=== PATIENT | female | born 1960 | race Caucasian/White ===

== ENCOUNTER 2018-08-03 07:46 | Inpatient (IN) | payer OTHER ==
[~2018-08-03] VITALS: Ht 154.4 cm; Wt 90.5 kg
--- OUTSIDE RECORDS SUMMARY | 2018-08-03 07:48 | XMS REPORT ---
Author Author Admin, [place] Organization [facility] Address [address] [place] [address] Phone Allergies, Adverse Reactions, Alerts Allergy Name Reaction Description Start Date Severity Status Provider KEFLEX Moderate Active Shavon Torres.Raysa Conditions or Problems Problem Name Problem Code Onset Date Status Entry Date Provider Comment Standard Description Annotate Hx of foot transmetatarsal amputation, right V49.73 Active Sarah Perez MD (res) Status post amputation of foot Benign positional vertigo 386.11 Active Shavon Ramirez D.O. Benign paroxysmal positional vertigo GERD 530.81 Active Sarah Perez MD (res) Esophageal reflux Need for home health care V60.4 Active Sarah Perez MD (res) No other household member able to render care Right carotid artery occlusion 433.10 Active Sarah Perez MD (res) Occlusion and stenosis of carotid artery, without mention of cerebral infarction s/p R CEA March 2018 ESRD 585.6 Active Sarah Perez MD (res) End stage renal disease Dialysis T,Th,S Renal: Dr. 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 Other, mixed, or unspecified drug abuse, in remission Cervical neuropathy 353.2 Active Shavon Baileydacompa D.O. Cervical root lesions, not elsewhere classified Amputated big toe V49.71 Active Shavon Baileydacompa D.O. Status post amputation of great toe Anemia 285.9 Active Shavon Ramirez D.O. Anemia, unspecified COPD 496 Active Shavon Baileydacompa D.O. Chronic airway obstruction, not elsewhere classified DEPRESSIVE DISORDER, MAJOR, RECURRENT EPISODE, SEVERE Active Brinda PAYNEW Major depressive disorder, recurrent episode, severe degree, without mention of psychotic behavior Diabetes mellitus, type II 250.00 Active Shavon Ramirez D.O. Diabetes mellitus without mention of complication, type II or unspecified type, not stated as uncontrolled Hypertension benign essential 401.1 Active Louis Vaughan MD Benign essential hypertension Amputation of great right toe ICD-V45.89 Inactive Sarah Perez MD (res) Osteomyelitis, acute, ankle/foot 730.07 Inactive Shavon Ramirez D.O. Acute osteomyelitis involving ankle and foot resolved S/P amputation of right toes Cellulitis, foot, right ICD-682.7 Inactive Sarah Perez MD (res) Gangrene 785.4 Inactive Radha Tello DO Gangrene right foot- first two digits Gangrene ICD-785.4 Inactive Radha Tello DO Wound eschar of foot ICD-959.7 Inactive Sarah Perez MD (res) CKD stage 4 (gfr 15-29) 585.4 Inactive Merna Steve [employer] Chronic kidney disease, Stage IV (severe) Dysuria ICD-788.1 Inactive Sarah Perez MD (res) Constipation ICD-564.00 Inactive Kalyan Smith MD R3 CVA 434.91 Inactive Shavon Ramirez D.O. Cerebral artery occlusion, unspecified, with cerebral infarction recent, pt is non compliant with meds Anxiety/depression ICD-300.4 Inactive Kalyan Smith MD R3 HTN, uncontrolled 401.9 Inactive Shavon Torres.O. Unspecified essential hypertension Nausea ICD-787.02 Inactive Kalyan Smith MD R3 Amputation of great right toe V45.89 Resolved Sarah Perez MD (res) Other postsurgical status Cellulitis, foot, right 682.7 Resolved Sarah Perez MD (res) Cellulitis and abscess of foot, except toes Wound eschar of foot 959.7 Resolved Sarah Perez MD (res) Other and unspecified injury to knee, leg, ankle, and foot Dysuria 788.1 Resolved Sarah Perez MD (res) Dysuria Constipation 564.00 Resolved Louis Vaughan MD Constipation, unspecified Anxiety/depression 300.4 Resolved Louis Vaughan MD Dysthymic disorder Nausea 787.02 Resolved Louis Vaughan MD Nausea alone Medication List Medication Instructions Start Date Stop Date Generic Name NDC Status Provider Patient Instruction FERROUS SULFATE 325 (65 FE) MG ORAL TABLET Take one tab By Mouth Three Times a Day FERROUS SULFATE 95254723915 Active Sarah Perez MD (res) Active PROMETHAZINE HCL 12.5 MG ORAL TABLET 1 by mouth every 6 hours as needed for nausea or emesis PROMETHAZINE HCL 87426185006 Active Sarah Perez MD (res) Active ELIQUIS 5 MG ORAL TABLET TK 1 T PO BID APIXABAN 87237458008 Active Sarah Perez MD (res) Active SEVELAMER CARBONATE 800 MG ORAL TABLET TK 2 TS PO TID WITH MEALS AND 1 T PO BID WITH SNACKS SEVELAMER CARBONATE 34145107802 Active Sarah Perez MD (res) Active LISINOPRIL 10 MG ORAL TABLET 1 by mouth every day LISINOPRIL 15948746028 Active Sarah Perez MD (res) Active PROTONIX 40 MG ORAL TABLET DELAYED RELEASE 1 tab By Mouth daily PANTOPRAZOLE SODIUM 84677073117 Active Sarah Perez MD (res) Active CLONIDINE HCL 0.1 MG ORAL TABLET Take one tab By Mouth Three Times a Day CLONIDINE HCL 09293090481 Active Sarah Perez MD (res) Active HYDRALAZINE HCL 50 MG ORAL TABLET Take one tab By Mouth Every 8 hours HYDRALAZINE HCL 83250787734 Active Sarah Perez MD (res) Active LORAZEPAM 0.5 MG ORAL TABLET 1 by mouth once daily as needed LORAZEPAM 19852747471 Active Sarah Perez MD (res) Active SENNA-DOCUSATE SODIUM 8.6-50 MG ORAL TABLET one tablet twice daily as needed for constipation SENNOSIDES-DOCUSATE SODIUM 35863337827 Active Madalyn Harry MD Active ASPIRIN 81 MG ORAL TABLET DELAYED RELEASE 1 by mouth every day ASPIRIN 81200846811 Active Merna DILL Active ATORVASTATIN CALCIUM 80 MG ORAL TABLET Take 1 pill By Mouth daily ATORVASTATIN CALCIUM 67730318647 Active Merna DILL Active GABAPENTIN 300 MG ORAL CAPSULE Take 2 capsules daily and 1 capsule at bedtime. GABAPENTIN 63130876983 Active Merna DILL Active SERTRALINE HCL 100 MG ORAL TABLET Take 1 1/2 tablets by mouth daily. SERTRALINE HCL 89779234919 Active Cinthya Lopezvino [facility] Active TRAMADOL HCL 50 MG ORAL TABLET 1 tablets by mouth 4 times a day as needed for pain, use sparingly TRAMADOL HCL 50 MG ORAL TABLET 427192 TRAMADOL HCL Inactive ONDANSETRON HCL 4 MG ORAL TABLET take one by mouth every 8 hours by mouth as needed ONDANSETRON HCL 4 MG ORAL TABLET 424669 ONDANSETRON HCL Inactive CLINDAMYCIN HCL 300 MG ORAL CAPSULE TK ONE C PO QID FOR 7 DAYS CLINDAMYCIN HCL 300 MG ORAL CAPSULE 567222 CLINDAMYCIN HCL Inactive AMLODIPINE BESYLATE 10 MG ORAL TABLET 1 tab by mouth daily AMLODIPINE BESYLATE 10 MG ORAL TABLET 026404 AMLODIPINE BESYLATE Inactive PLAVIX 75 MG ORAL TABLET 1 by mouth every day PLAVIX 75 MG ORAL TABLET 337636 CLOPIDOGREL BISULFATE Inactive ATIVAN 0.5 MG ORAL TABLET Take 1 tablet by mouth daily as needed for anxiety. ATIVAN 0.5 MG ORAL TABLET LORAZEPAM Inactive ATIVAN 1 MG ORAL TABLET 1 by mouth 2 times a day as needed for anxiety ATIVAN 1 MG ORAL TABLET 461518 LORAZEPAM Inactive CARVEDILOL 3.125 MG ORAL TABLET 1 pill twice a day CARVEDILOL 3.125 MG ORAL TABLET 242669 CARVEDILOL Inactive CITALOPRAM HYDROBROMIDE 20 MG ORAL TABLET 1 tab by mouth daily CITALOPRAM HYDROBROMIDE 20 MG ORAL TABLET 956705 CITALOPRAM HYDROBROMIDE Inactive METFORMIN HCL 1000 MG ORAL TABLET 1 by mouth twice a day METFORMIN HCL 1000 MG ORAL TABLET 578609 METFORMIN HCL Inactive PROMETHAZINE HCL 25 MG ORAL TABLET 1 by mouth every 6 hours as needed for nausea or emesis PROMETHAZINE HCL 25 MG ORAL TABLET 944658 PROMETHAZINE HCL Inactive TRAMADOL HCL 50 MG ORAL TABLET 1 tablets by mouth 4 times a day as needed for pain, use sparingly TRAMADOL HCL 95849744812 No Longer Active Sarah Perez MD (res) Active ONDANSETRON HCL 4 MG ORAL TABLET take one by mouth every 8 hours by mouth as needed ONDANSETRON HCL 88028174857 No Longer Active Sarah Perez MD (res) Active CLINDAMYCIN HCL 300 MG ORAL CAPSULE TK ONE C PO QID FOR 7 DAYS CLINDAMYCIN HCL 41170831716 No Longer Active Sarah Perez MD (res) Active AMLODIPINE BESYLATE 10 MG ORAL TABLET 1 tab by mouth daily AMLODIPINE BESYLATE 18220861488 No Longer Active Sarah Perez MD (res) Active PLAVIX 75 MG ORAL TABLET 1 by mouth every day CLOPIDOGREL BISULFATE 21458028261 No Longer Active Sarah Perez MD (res) Active ATIVAN 0.5 MG ORAL TABLET Take 1 tablet by mouth daily as needed for anxiety. LORAZEPAM 61425329505 No Longer Active Sarah Perez MD (res) Active ATIVAN 1 MG ORAL TABLET 1 by mouth 2 times a day as needed for anxiety LORAZEPAM 41903174011 No Longer Active Shavon Ramirez D.O. Active CARVEDILOL 3.125 MG ORAL TABLET 1 pill twice a day CARVEDILOL 96153409637 No Longer Active Sarah Perez MD (res) Active CITALOPRAM HYDROBROMIDE 20 MG ORAL TABLET 1 tab by mouth daily CITALOPRAM HYDROBROMIDE 42000867035 No Longer Active Shavon Torres.Raysa Active METFORMIN HCL 1000 MG ORAL TABLET 1 by mouth twice a day METFORMIN HCL 44510723830 No Longer Active Shavon Torres.Raysa Active PROMETHAZINE HCL 25 MG ORAL TABLET 1 by mouth every 6 hours as needed for nausea or emesis PROMETHAZINE HCL 89168173948 No Longer Active Shavon Ramirez D.O. Active Vital Signs Date Name Value Unit Range Description blood pressure, diastolic 54 mm[Hg] BP wood blood pressure, systolic 126 mm[Hg] BP sys height E&M 67 [in_us] Bdy height pulse rate E&M 69 /min Heart rate respiratory rate E&M 21 /min Resp rate temperature E&M 98.4 [degF] Body temperature blood pressure, diastolic 79 mm[Hg] BP wood blood pressure, systolic 129 mm[Hg] BP sys height E&M 67 [in_us] Bdy height pulse rate E&M 64 /min Heart rate respiratory rate E&M 20 /min Resp rate temperature E&M 98.3 [degF] Body temperature blood pressure, diastolic 76 mm[Hg] BP wood blood pressure, systolic 132 mm[Hg] BP sys height E&M 67 [in_us] Bdy height pulse rate E&M 74 /min Heart rate respiratory rate E&M 20 /min Resp rate temperature E&M 98.8 [degF] Body temperature blood pressure, diastolic, second observation 57 mm[Hg] BP wood blood pressure, diastolic 57 mm[Hg] BP wood blood pressure, systolic, second observation 140 mm[Hg] BP sys blood pressure, systolic 140 mm[Hg] BP sys height E&M 67 [in_us] Bdy height pulse rate E&M 63 /min Heart rate respiratory rate E&M 20 /min Resp rate temperature E&M 98.1 [degF] Body temperature blood pressure, diastolic 79 mm[Hg] BP wood blood pressure, systolic 148 mm[Hg] BP sys height E&M 67 [in_us] Bdy height pulse rate E&M 69 /min Heart rate respiratory rate E&M 16 /min Resp rate temperature E&M 99.3 [degF] Body temperature Diagnostic Results Date Name Value Unit Range Description Lab Report: TSH+Free T4, Comp. Metabolic Panel (14), Lipid Panel, Hemogl ... - Chemistry thyroid stimulating hormone, serum 4.200 u[iU]/mL 0.450-4.500 very low density lipoproteins 27 mg/dL 5-40 Lab Report: Comp. Metabolic Panel (14) - Chemistry chloride, serum 106 mmol/L 97-106 urea nitrogen, blood 39 mg/dL 6-24 Lab Report: CBC With Differential/Platelet - Hematology mean corpuscular hemoglobin concentration, RBC 32.2 G/DL % 31.5-35.7 erythrocyte (RBC) count 4.17 X10E6/UL 10*6/mm3 3.77-5.28 Lab Report: CBC With Differential/Platelet - Chemistry Absolute Neutrophils 7.9 X10E3/UL 10*3/uL 1.4-7.0 Lab Report: TSH+Free T4, Comp. Metabolic Panel (14), Lipid Panel, Hemogl ... - Chemistry LDL cholesterol, serum 179 mg/dL 0-99 Lab Report: Comp. 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 Metabolic Panel (14), Lipid Panel, Hemogl ... - Chemistry HDL cholesterol, serum 62 mg/dL >39 Lab Report: CBC With Differential/Platelet - Hematology monocytes as percent of blood leukocytes 3 % Lab Report: Comp. Metabolic Panel (14) - Chemistry albumin/globulin ratio, serum 1.2 1.1-2.5 creatinine, serum 2.00 mg/dL 0.57-1.00 Lab Report: TSH+Free T4, Comp. Metabolic Panel (14), Lipid Panel, Hemogl ... - Chemistry cholesterol, serum 268 mg/dL 100-199 Lab Report: Comp. Metabolic Panel (14) - Chemistry bilirubin, serum, total <0.2 mg/dL mg/dL 0.0-1.2 Lab Report: CBC With Differential/Platelet - Hematology Eosinophil Absolute Count 0.3 X10E3/UL 10*3/uL 0.0-0.4 Lab Report: Comp. Metabolic Panel (14) - Chemistry aspartate aminotransferase (SGOT), serum 13 U/L 0-40 Lab Report: CBC With Differential/Platelet - Hematology red blood cell distribution width 15.3 % 12.3-15.4 leukocyte count, blood 10.7 X10E3/UL 10*3/mm3 3.4-10.8 Lab Report: Comp. Metabolic Panel (14) - Chemistry potassium, serum 5.2 mmol/L 3.5-5.2 albumin, serum 3.6 g/dL 3.5-5.5 Lab Report: CBC With Differential/Platelet - Chemistry immature granulocytes, percentage of total cells, blood 0 % Lab Report: CBC With Differential/Platelet - Hematology lymphocyte count, blood, automated 2.2 X10E3/UL 10*3/mm3 0.7-3.1 hematocrit, blood 36.9 % 34.0-46.6 Lab Report: Comp. Metabolic Panel (14) - Chemistry sodium, serum 139 mmol/L 136-144 Lab Report: CBC With Differential/Platelet - Hematology neutrophils as percent of blood leukocytes 73 % Internal Correspondence: Pre-Visit Planning - Other List of providers caring for patient Leona Lua and Dixie Desai Lab Report: CBC With Differential/Platelet - Hematology basophils as percent of blood leukocytes 0 % Lab Report: Comp. Metabolic Panel (14) - Chemistry carbon dioxide, venous blood 15 mmol/L 18-29 Lab Report: TSH+Free T4, Comp. Metabolic Panel (14), Lipid Panel, Hemogl ... - Chemistry triglyceride, serum, fasting 135 mg/dL 0-149 Lab Report: Comp. Metabolic Panel (14) - Chemistry calcium, serum 8.2 mg/dL 8.7-10.2 alanine aminotransferase (SGPT), serum 16 U/L 0-32 Lab Report: CBC With Differential/Platelet - Hematology mean corpuscular hemoglobin, RBC 28.5 pg 26.6-33.0 Lab Report: Comp. Metabolic Panel (14) - Chemistry protein, total, serum 6.6 g/dL 6.0-8.5 alkaline phosphatase, serum 98 U/L 39-117 Lab Report: CBC With Differential/Platelet - Hematology hemoglobin, blood 11.9 g/dL 11.1-15.9 lymphocytes as percent of blood leukocytes 21 % Office Visit: Adult Followup diabetes/homecare eval rm 5 Dr Perez - Chemistry hemoglobin A1C, blood, as % of total hemoglobin 5.2 % Lab Report: Comp. Metabolic Panel (14) - Genetics/fertility eGFR if 32 mL/min/1.73m2 >59 Lab Report: CBC With Differential/Platelet - Hematology basophil count, absolute 0.0 x10E3/uL 0.0-0.2 Lab Report: TSH+Free T4, Comp. Metabolic Panel (14), Lipid Panel, Hemogl ... - Chemistry thyroxine, serum, free 0.89 ng/dL 0.82-1.77 Lab Report: Comp. Metabolic Panel (14) - Chemistry globulin, serum 3.0 1.5-4.5 Estimated Glomerular Filtration Rate (calc) 28 mL/min/1.73m2 >59 Lab Report: CBC With Differential/Platelet - Hematology eosinophils as percent of blood leukocytes 3 % Office Visit: Adult Followup diabetes/homecare eval rm 5 Dr Perez - Chemistry blood glucose, random 120 mg/dL Lab Report: CBC With Differential/Platelet - Hematology monocyte count, blood, automated 0.3 X10E3/UL 10*3/uL 0.1-0.9 platelet count 393 X10E3/UL 10*3/mm3 150-379 Encounters Date Encounter Provider Code Facility 12:08:00 HEPATOLOGY PHYSICIAN Est Patient Detailed - 05115 Sarah Perez MD (res) CPT-17324 [facility] 16:42:05 HEPATOLOGY PHYSICIAN Est Patient Exp Problem - 30039 Shavon Ramirez D.O. CPT-18666 [facility] 14:50:12 HEPATOLOGY PHYSICIAN Est Patient Detailed - 90412 Shavon Ramirez D.O. CPT-34277 [facility] 11:47:56 CDT Est Patient Exp Problem - 75287 Sarah Perez MD (res) CPT-16724 [facility] 13:45:55 CDT Est Patient Detailed - 04665 Merna Steve [facility] CPT-27157 [facility] 09:24:22 HEPATOLOGY PHYSICIAN Est Patient Detailed - 28063 Freddie Arellano MD CPT-33073 [facility] 08:54:58 HEPATOLOGY PHYSICIAN Est Patient Exp Problem - 05397 Louis Vaughan MD CPT-67159 [facility] 13:27:16 CDT Est Patient Exp Problem - 95509 Madalyn Harry MD CPT-14122 [facility] 17:52:32 CDT Est Patient Exp Problem - 41462 Shavon Ramirez D.O. CPT-19093 [facility] 11:20:23 HEPATOLOGY PHYSICIAN Est Patient Exp Problem - 57354 Papa Santizo DO R3 CPT-49313 [facility] 16:06:11 CDT Est Patient Exp Problem - 57166 Shavon Ramirez D.O. CPT-22073 [facility] Procedures Code Procedure Name Date Entry Date Standard Description CPT-40510 HEMOGLOBIN A1C - In House 08:54:59 HEPATOLOGY PHYSICIAN CPT-56619 Psychotherapy 30 (16-37*) min - 58098 (with patient and/or family member) 21:27:17 CDT CPT-59209 Diagnostic evaluation with medical - 26086 08:43:54 CDT CPT-FC001 Financial Counseling/Eligibility Assistance 13:27:17 CDT CPT-77389 Diagnostic evaluation (no medical) - 83936 10:38:25 CDT CPT-81121 Diagnostic evaluation (no medical) - 99499 20:08:39 CDT CPT-FC001 Financial Counseling/Eligibility Assistance 16:06:11 CDT
[2018-08-03] MEDS ORDERED: ONDANSETRON HCL INJ 2MG/ML 2ML 2 MG/ML VIAL ONE (07:59)
[2018-08-03] MEDS ORDERED: ONDANSETRON HCL INJ 2MG/ML 2ML 2 MG/ML VIAL IV STA (08:02)
[2018-08-03] MEDS ORDERED: PROMETHAZINE HCL (IM) 25 MG/ML VIAL ONE (08:13)
[2018-08-03] MEDS ORDERED: SODIUM CHLORIDE 0.9% 100 ML ONE (08:14)
[2018-08-03 08:26] LABS: BASOPHILS % 0.4 % (0.0-1.0); EOSINOPHILS # (AUTO) 0.4 (0.0-0.4); HEMATOCRIT 30.3 % (34.2-44.1); HEMOGLOBIN 9.2 g/dL (12.0-16.0); LYMPHOCYTES # (AUTO) 1.2 (1.0-3.2); LYMPHOCYTES % 11.1 % (18.0-39.1); MEAN CORPUSCULAR HEMOGLOBIN 27.3 pg (28-32); MEAN CORPUSCULAR HGB CONC 30.4 g/dL (31-35); MEAN CORPUSCULAR VOLUME 89.9 fL (81-99); MONOCYTES # (AUTO) 0.5 (0.2-0.8); MONOCYTES % 4.2 % (4.4-11.3); NEUTROPHILS # (AUTO) 8.4 (2.1-6.9); NEUTROPHILS % 78.7 % (38.7-80.0); PLATELET COUNT 374 x10e3/uL (140-360); RED BLOOD COUNT 3.37 x10e6/uL (3.6-5.1); RED CELL DISTRIBUTION WIDTH 17.1 % (11.7-14.4)
[2018-08-03 08:37] LABS: CLARITY,URINE CLOUDY (CLEAR); COLOR,URINE YELLOW (YELLOW)
[2018-08-03 08:38] LABS: BILIRUBIN,URINE NEGATIVE (NEGATIVE); KETONES,URINE NEGATIVE (NEGATIVE); LEUKOCYTE ESTERASE ,URINE 1+ (NEGATIVE); NITRITE,URINE NEGATIVE (NEGATIVE); PROTEIN,URINE DIPSTICK 2+ (NEGATIVE); URINE UROBILINOGEN 0.2 mg/dL (0.2 - 1)
[2018-08-03 08:41] LABS: INR 0.98; PROTHROMBIN TIME 13.5 seconds (11.9-14.5)
[2018-08-03 08:42] LABS: PARTIAL THROMBOPLASTIN TIME 42.8 seconds (23.8-35.5)
[2018-08-03 08:50] LABS: ALANINE AMINOTRANSFERASE 13 IU/L (0-55); ALBUMIN 2.5 g/dL (3.5-5.0); ALBUMIN/GLOBULIN RATIO 0.6 (0.8-2.0); ALKALINE PHOSPHATASE 108 IU/L (40-150); AMYLASE 29 U/L (25-125); ANION GAP 20.2 mmol/L (8-16); BLOOD UREA NITROGEN 35 mg/dL (7-26); BUN/CREATININE RATIO 6 (6-25); CALCIUM 8.4 mg/dL (8.4-10.2); CARBON DIOXIDE 26 mmol/L (22-29); CHLORIDE 97 mmol/L (98-107); CREATINE KINASE 25 IU/L (29-168); CREATININE, SERUM 5.63 mg/dL (0.57-1.11); EST GLOMERULAR FILTRATION RATE 8 ML/MIN (60-); GLUCOSE 112 mg/dL (74-118); LIPASE 11 U/L (8-78); MAGNESIUM 2.2 MG/DL (1.3-2.1); POTASSIUM 4.2 mmol/L (3.5-5.1); SODIUM 139 mmol/L (136-145)
[2018-08-03 08:53] LABS: RBC,URINE >50 /HPF (0-5); WBC,URINE (MAN) >50 /HPF (0-5); YEAST,URINE MODERATE
[2018-08-03 08:56] LABS: EPITHELIAL CELLS,URINE FEW /LPF
--- NOTE | 2018-08-03 08:59 | NUR ---
RADIOLOGY TO ROOM FOR TESTING.
[2018-08-03] MEDS ORDERED: PROMETHAZINE 12.5MG/ NACL 0.9% 12.5 MG/50 ML BAG IV ONE (09:00)
--- NOTE | 2018-08-03 09:02 | NUR ---
ON ARRIVAL PT ACTIVELY VOMITING. MD AT BEDSIDE. MEDS ORDERED AND GIVEN AND PT NO LONGER VOMITING AND RESTING COMFORTABLY WITH STABLE VITAL SIGNS. HOB REMAINS 45 DEGREES TO DECREASE ASPIRATION RISK, ALSO HAS EMASIS BAG IN HAND WITH CALL ROSALES TIED TO RAIL AND INSTRUCTED ON USE WITH RETURN DEMONSTRATION. DOOR OPEN AND ON FULL MONITORING AND O2.
[2018-08-03] MEDS ORDERED: VANCOMYCIN 1GM/NS 250 ML 250 ML IV STA (09:05)
[2018-08-03] MEDS ORDERED: MEROPENEM 500MG 500 MG in SODIUM CHLORIDE 0.9% 50ML 50 ML IV STA (09:05)
[2018-08-03] MEDS ORDERED: DIATRIZOATE MEGL/DIATRIZOA SOD 30 ML BTL PO ONE (09:10)
--- NOTE | 2018-08-03 09:14 | NUR ---
MD NOTIFIED OF LOW BP AND ORDERED NS 500 CC' ; HUNG AND RUNNING WIDE OPEN; CONTINUE TO MONITOR.
[2018-08-03] MEDS ORDERED: SODIUM CHLORIDE 0.9% 500ML 500 ML IV ONE (09:15)
--- NOTE | 2018-08-03 09:18 | Diagnostic Imaging Report ---
EXAM: CHEST SINGLE (PORTABLE) DATE: 08/03/2018 8:02 AM INDICATION: Renal disease COMPARISON: None FINDINGS: Lines and tubes: There is a tunneled right IJ dialysis catheter with the tip extending to the cavoatrial junction. Heart size normal. No focal pulmonary opacity, pleural effusion or pneumothorax. No pulmonary vascular congestion. Minimal scar or atelectasis in the right midlung. Upper abdomen unremarkable. No acute bony abnormality. IMPRESSION: No evidence for acute disease in the chest. Signed by: Dr. Efra Stuart M.D. on 08/03/2018 9:15 AM
--- NOTE | 2018-08-03 09:22 | Diagnostic Imaging Report ---
EXAM: FOOT RIGHT COMPLETE DATE: 08/03/2018 8:02 AM INDICATION: Recent amputation COMPARISON: None FINDINGS: 3 views of the right foot show transmetatarsal amputations of the first through fifth digits. Bones at the foot and ankle are diffusely demineralized. There is patchy lucency at the base of the first metatarsal medially and at the base of the fifth metatarsal which may be related to the generalized osteopenia or osteomyelitis. Bandaging is seen over the distal aspect of the foot. IMPRESSION: 1. Transmetatarsal amputations of the first or fifth digits. 2. Generalized osteopenia of the foot and ankle. 3. Ill-defined demineralization at the base of the first and fifth metatarsals is nonspecific and may be related to the generalized osteopenia, although involvement by osteomyelitis is also a consideration. Signed by: Dr. Efra Stuart M.D. on 08/03/2018 9:19 AM
--- NOTE | 2018-08-03 10:07 | NUR ---
RESTING COMFORTABLY NO DISTRESS, VSS.
--- NOTE | 2018-08-03 11:28 | Diagnostic Imaging Report ---
EXAMINATION: CT of the abdomen and pelvis with contrast. TECHNIQUE: Helical CT images of the abdomen and pelvis were performed from the lung bases to the lesser trochanters after the intravenous administration of 150 cc of Isovue 300 and the oral administration of none. Coronal and sagittal reformatted images were obtained.Dose modulation, iterative reconstruction, and/or weight based adjustment of the mA/kV was utilized to reduce the radiation dose to as low as reasonably achievable. COMPARISON: None. CLINICAL HISTORY:Nausea and vomiting DISCUSSION: ABDOMEN/PELVIS: LOWER THORAX:Unremarkable. HEPATOBILIARY: No focal hepatic lesions. No intra-or extrahepatic biliary ductal dilation. Cholecystectomy with postsurgical change. Surgical overlying the right liver. At the operative site a 6.8 cm air and fluid collection. SPLEEN: No splenomegaly. PANCREAS: No focal masses or ductal dilatation. ADRENALS: No adrenal nodules. KIDNEYS/URETERS: Renal cortical thinning. No solid mass. PELVIC ORGANS/BLADDER: Bladder is decompressed with Garcia catheter. PERITONEUM/RETROPERITONEUM: No free air or fluid. LYMPH NODES: No intra-abdominal, retroperitoneal, pelvic or inguinal lymphadenopathy. VESSELS: Vascular calcifications. GI TRACT: Contrast within the colon. BONES AND SOFT TISSUE: No bony destructive lesions. No soft tissue abnormalities. IMPRESSION: Postoperative changes from cholecystectomy. A 7 cm air and fluid collection at the operative site. Signed by: Dr. Keenan Martinez M.D. on 08/03/2018 11:25 AM
--- NOTE | 2018-08-03 11:43 | NUR ---
[facility] pt s/p choleystectomy x 5 days and having abd pain and vomiting on arrival. transfer denied. they are holding 21 pts in their own ER @ this time.
[2018-08-03] MEDS ORDERED: DEXTROSE 50% SYRINGE 50 ML IV PRN (12:15)
--- NOTE | 2018-08-03 12:15 | NUR ---
medical release printed off [employer] and on chart. pt resting. will have pt sign once awake.
--- OUTSIDE RECORDS SUMMARY | 2018-08-03 12:37 | XMS REPORT ---
Author Author [facility] Address Unknown Phone Unavailable Care Team Providers Care Dog Food Dough Mixer Name Role Phone Ofelia CALHOUN Unavailable Unavailable Problems This patient has no known problems. Allergies, Adverse Reactions, Alerts This patient has no known allergies or adverse reactions. Medications This patient has no known medications. Results Test Description Test Time Test Comments Text Results Atomic Results Result Comments CT ABDOMEN/PELVIS W 2018-08-03 11:18:00 [place] [address] Patient Name: SAMANTHA BIRD MR #: [id number] : 1960 Age/Sex: 57/F Req #: [id number] Adm Physician: Ordered by: RAMIREZ CALHOUN MD Report #: [id number] Location: ER Room/Bed: Procedure: [id number] CT/CT ABDOMEN/PELVIS W Exam Date: 08/03/18 Exam Time: 1030 REPORT STATUS: Signed EXAMINATION: CT of the abdomen and pelvis with contras t. TECHNIQUE: Helical CT images of the abdomen and pelvis were performed from the lung bases to the lesser trochanters after the intravenous administration of 150 cc of Isovue 300 and the oral administration of none. Coronal and sagittal reformatted images were obtained.Dose modulation, iterative reconstruction, and/or weight based adjustment of the mA/kV was utilized to reduce the radiation dose to as low as reasonably achievable. COMPARISON: None. CLINICAL HISTORY:Nausea and vomiting DISCUSSION: ABDOMEN/PELVIS: LOWER THORAX:Unremarkable. HEPA TOBILIARY: No focal hepatic lesions. No intra-or extrahepatic biliary ductal dilation. Cholecystectomy with postsurgical change. Surgical overlying the right liver. At the operative site a 6.8 cm air and fluid collection. SPLEEN: No splenomegaly. PANCREAS: No focal masses or ductal dilatation. ADRENALS: No adrenal nodules. KIDNEYS/URETERS: Renal cortical thinning. No solid mass. PELVIC ORGANS/BLADDER: Bladder is decompressed with Garcia catheter. PERITONEUM/RETROPERITONEUM: No free air or fluid. LYMPH NODES: No intra-abdominal, retroperitoneal, pelvic or inguinal lymphadenopathy. VESSELS: Vascular calcifications. GI TRACT: Contrast within the colon. BONES AND SOFT TISSUE: No bony destructive lesions. No soft tissue abnormalities. IMPRESSION: Postoperative changes from cholecystectomy. A 7 cm air and fluid collection at the operative site. Signed by: Dr. Sky Reaves M.D. on 08/03/2018 11:25 AM Dictated By: SKY REAVES MD 1125 Transcribed By: MIMI on 08/03/18 1125 COPY TO: RAMIREZ CALHOUN MD FOOT RIGHT COMPLETE 2018-08-03 09:15:00 [place] [address] Patient Name: SAMANTHA BIRD MR #: [id number] : 1960 Age/Sex: 57/F Req #: [id number] Adm Physician: Ordered by: RAMIREZ CALHOUN MD Report #: [id number] Location: ER Room/Bed: Procedure: [id number] DX/FOOT RIGHT COMPLETE Exam Date: 08/03/18 Exam Time: 839 REPORT STATUS: Signed EXAM: FOOT RIGHT COMPLETE DATE: 08/03/2018 8:02 AM INDICATION: Recent amputation COMPARISON: None FINDINGS: 3 views of the right foot show transmetatarsal amputations of the first through fifth digits. Bones at the foot and ankle are diffusely demineralized. There is patchy lucency at the base of the first metatarsal medially and at the base of the fifth metatarsal which may be related to the generalized osteopenia or o steomyelitis. Bandaging is seen over the distal aspect of the foot. IMPRESSION: 1. Transmetatarsal amputations of the first or fifth digits. 2. Generalized osteopenia of the foot and ankle. 3. Ill-defined demineralization at the base of the first and fifth metatarsals is nonspecific and may be related to the generalized osteopenia, although involvement by osteomyelitis is also a consideration. Signed by: Dr. Maria Esther Lang M.D. on 08/03/2018 9:19 AM Dictated By: MARIA ESTHER LANG MD 8 Transcribed By: MIMI on 08/03/18918 COPY TO: RAMIREZ CALHOUN MD CHEST SINGLE (PORTABLE) 2018-08-03 09:13:00 [place] [address] Patient Name: SAMANTHA BIRD MR #: [id number] : 1960 Age/Sex: 57/F Req #: [id number] Adm Physician: Ordered by: RAMIREZ CALHOUN MD Report #: [id number] Location: ER Room/Bed: Procedure: [id number] DX/CHEST SINGLE (PORTABLE) Exam Date: 08/03/18 Exam Time: 0840 REPORT STATUS: Signed EXAM: CHEST SINGLE (PORTABLE) DATE: 08/03/2018 8:02 AM INDICATION: Renal disease COMPARISON: None FINDINGS: Lines and tubes: There is a tunneled right IJ dialysis catheter with the tip extending to the cavoatrial junction. Heart size normal. No focal pulmonary opacity, pleural effusion or pneumothorax. No pulmonary vascular congestion. Minimal scar or atelectasis in the right midlung. Upper abdomen unremarkable. No acute bony abnormality. IMPRESSION: No evidence for acute disease in the chest. Signed by: Dr. Maria Esther Lang M.D. on 08/03/2018 9:15 AM Dictated By: MARIA ESTHER LANG MD 4 Transcribed By: MIMI on 08/03/18914 COPY TO: RAMIREZ CALHOUN MD
--- OUTSIDE RECORDS SUMMARY | 2018-08-03 12:38 | XMS REPORT ---
Author Author Admin, [place] Organization [facility] Address [address] [address] Phone Allergies, Adverse Reactions, Alerts Allergy Name [...] Dr. 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 Other, mixed, or unspecified drug abuse, in remission Cervical neuropathy 353.2 Active Shavon Ramirez D.O. Cervical root lesions, not elsewhere classified Amputated big toe V49.71 Active Shavon Baileydacompa D.O. Status post amputation of great toe Anemia 285.9 Active Shavon Ramirez D.O. Anemia, unspecified COPD 496 Active Shavon Ramirez D.O. 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 Chronic kidney disease, Stage IV (severe) Dysuria [...] Mouth Three Times a Day FERROUS SULFATE 07950239405 Active Sarah Perez MD (res) Active PROMETHAZINE HCL 12.5 MG ORAL TABLET 1 by mouth every 6 hours as needed for nausea or emesis PROMETHAZINE HCL 46089732766 Active Sarah Perez MD (res) Active ELIQUIS 5 MG ORAL TABLET TK 1 T PO BID APIXABAN 10404006965 Active Sarah Perez MD (res) Active SEVELAMER CARBONATE 800 MG ORAL TABLET TK 2 TS PO TID WITH MEALS AND 1 T PO BID WITH SNACKS SEVELAMER CARBONATE 24440340903 Active Sarah Perez MD (res) Active LISINOPRIL 10 MG ORAL TABLET 1 by mouth every day LISINOPRIL 71311634113 Active Sarah Perez MD (res) Active PROTONIX 40 MG ORAL TABLET DELAYED RELEASE 1 tab By Mouth daily PANTOPRAZOLE SODIUM 93527618905 Active Sarah Perez MD (res) Active CLONIDINE HCL 0.1 MG ORAL TABLET Take one tab By Mouth Three Times a Day CLONIDINE HCL 02812051501 Active Sarah Perez MD (res) Active HYDRALAZINE HCL 50 MG ORAL TABLET Take one tab By Mouth Every 8 hours HYDRALAZINE HCL 37715330215 Active Sarah Perez MD (res) Active LORAZEPAM 0.5 MG ORAL TABLET 1 by mouth once daily as needed LORAZEPAM 52512669833 Active Sarah Perez MD (res) Active SENNA-DOCUSATE SODIUM 8.6-50 MG ORAL TABLET one tablet twice daily as needed for constipation SENNOSIDES-DOCUSATE SODIUM 65916477427 Active Madalyn Harry MD Active ASPIRIN 81 MG ORAL TABLET DELAYED RELEASE 1 by mouth every day ASPIRIN 45553880758 Active Merna DILL Active ATORVASTATIN CALCIUM 80 MG ORAL TABLET Take 1 pill By Mouth daily ATORVASTATIN CALCIUM 66910333413 Active Merna MARTINEZP Active GABAPENTIN 300 MG ORAL CAPSULE Take 2 capsules daily and 1 capsule at bedtime. GABAPENTIN 65953884523 Active Merna DILL Active SERTRALINE HCL 100 MG ORAL TABLET Take 1 1/2 tablets by mouth daily. SERTRALINE HCL 48876576190 [facility] TRAMADOL HCL 50 MG ORAL TABLET 1 tablets by mouth 4 times a day as needed for pain, use sparingly TRAMADOL HCL 50 MG ORAL TABLET 044854 TRAMADOL HCL Inactive ONDANSETRON HCL 4 MG ORAL TABLET take one by mouth every 8 hours by mouth as needed ONDANSETRON HCL 4 MG ORAL TABLET 361793 ONDANSETRON HCL Inactive CLINDAMYCIN HCL 300 MG ORAL CAPSULE TK ONE C PO QID FOR 7 DAYS CLINDAMYCIN HCL 300 MG ORAL CAPSULE 832354 CLINDAMYCIN HCL Inactive AMLODIPINE BESYLATE 10 MG ORAL TABLET 1 tab by mouth daily AMLODIPINE BESYLATE 10 MG ORAL TABLET 493775 AMLODIPINE BESYLATE Inactive PLAVIX 75 MG ORAL TABLET 1 by mouth every day PLAVIX 75 MG ORAL TABLET 323676 CLOPIDOGREL BISULFATE Inactive ATIVAN 0.5 MG ORAL TABLET Take 1 tablet by mouth daily as needed for anxiety. ATIVAN 0.5 MG ORAL TABLET LORAZEPAM Inactive ATIVAN 1 MG ORAL TABLET 1 by mouth 2 times a day as needed for anxiety ATIVAN 1 MG ORAL TABLET 609765 LORAZEPAM Inactive CARVEDILOL 3.125 MG ORAL TABLET 1 pill twice a day CARVEDILOL 3.125 MG ORAL TABLET 285981 CARVEDILOL Inactive CITALOPRAM HYDROBROMIDE 20 MG ORAL TABLET 1 tab by mouth daily CITALOPRAM HYDROBROMIDE 20 MG ORAL TABLET 597822 CITALOPRAM HYDROBROMIDE Inactive METFORMIN HCL 1000 MG ORAL TABLET 1 by mouth twice a day METFORMIN HCL 1000 MG ORAL TABLET 037499 METFORMIN HCL Inactive PROMETHAZINE HCL 25 MG ORAL TABLET 1 by mouth every 6 hours as needed for nausea or emesis PROMETHAZINE HCL 25 MG ORAL TABLET 481977 PROMETHAZINE HCL Inactive TRAMADOL HCL 50 MG ORAL TABLET 1 tablets by mouth 4 times a day as needed for pain, use sparingly TRAMADOL HCL 86364043712 No Longer Active Sarah Perez MD (res) Active ONDANSETRON HCL 4 MG ORAL TABLET take one by mouth every 8 hours by mouth as needed ONDANSETRON HCL 48913867934 No Longer Active Sarah Perez MD (res) Active CLINDAMYCIN HCL 300 MG ORAL CAPSULE TK ONE C PO QID FOR 7 DAYS CLINDAMYCIN HCL 80694285992 No Longer Active Sarah Perez MD (res) Active AMLODIPINE BESYLATE 10 MG ORAL TABLET 1 tab by mouth daily AMLODIPINE BESYLATE 65844088127 No Longer Active Sarah Perez MD (res) Active PLAVIX 75 MG ORAL TABLET 1 by mouth every day CLOPIDOGREL BISULFATE 53650630792 No Longer Active Sarah Perez MD (res) Active ATIVAN 0.5 MG ORAL TABLET Take 1 tablet by mouth daily as needed for anxiety. LORAZEPAM 65042634801 No Longer Active Sarah Perez MD (res) Active ATIVAN 1 MG ORAL TABLET 1 by mouth 2 times a day as needed for anxiety LORAZEPAM 92837847696 No Longer Active Shavon Ramirez D.O. Active CARVEDILOL 3.125 MG ORAL TABLET 1 pill twice a day CARVEDILOL 51345001135 No Longer Active Sarah Perez MD (res) Active CITALOPRAM HYDROBROMIDE 20 MG ORAL TABLET 1 tab by mouth daily CITALOPRAM HYDROBROMIDE 11714452093 No Longer Active Shavon Ramirez D.O. Active METFORMIN HCL 1000 MG ORAL TABLET 1 by mouth twice a day METFORMIN HCL 58756314258 No Longer Active Shavon Ramirez D.O. Active PROMETHAZINE HCL 25 MG ORAL TABLET 1 by mouth every 6 hours as needed for nausea or emesis PROMETHAZINE HCL 56640559298 No Longer Active Shavon Ramirez D.O. 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 CPT-08814 [facility] 14:50:12 ELECTROCARDIOGRAPH OPERATOR Est Patient Detailed - 07782 Sahvon Ramirez D.O. CPT-36074 [facility] 11:47:56 CDT Est Patient Exp Problem - 70969 Sarah Perez MD (res) CPT-67448 [facility] 13:45:55 CDT Est Patient Detailed - 12468 Merna Steve [facility] CPT-60099 [facility] 09:24:22 ELECTROCARDIOGRAPH OPERATOR Est Patient Detailed - 30418 Freddie Arellano MD CPT-07179 [facility] 08:54:58 ELECTROCARDIOGRAPH OPERATOR Est Patient Exp Problem - 87962 Louis Vaughan MD CPT-91292 [facility] 13:27:16 CDT Est Patient Exp Problem - 11232 Madalyn Harry MD CPT-37771 [facility] 17:52:32 CDT Est Patient Exp Problem - 77965 Shavon Ramirez D.O. CPT-89000 [facility] 11:20:23 ELECTROCARDIOGRAPH OPERATOR Est Patient Exp Problem - 16735 Papa Santizo DO R3 CPT-17521 [facility] 16:06:11 CDT Est Patient Exp Problem - 78836 Shavon Ramirez D.O. CPT-08492 [facility] Procedures Code Procedure Name Date Entry Date Standard Description CPT-92361 HEMOGLOBIN A1C - In House 08:54:59 ELECTROCARDIOGRAPH OPERATOR CPT-47011 Psychotherapy 30 (16-37*) min - 35694 (with patient and/or family member) 21:27:17 CDT CPT-98125 Diagnostic evaluation with medical - 26210 08:43:54 CDT CPT-FC001 Financial Counseling/Eligibility Assistance 13:27:17 CDT CPT-03148 Diagnostic evaluation (no medical) - 31704 10:38:25 CDT CPT-74204 Diagnostic evaluation (no medical) - 28982 20:08:39 CDT CPT-FC001 Financial Counseling/Eligibility Assistance 16:06:11 CDT
--- NOTE | 2018-08-03 13:54 | NUR ---
CORNELIO GAMEZ SABATINI ALL AWARE OF PT. ROSALIO SAW PT IN ER.
[2018-08-03] MEDS ORDERED: SODIUM CHLORIDE 0.9% 250ML 250 ML ONE (15:07)
[2018-08-03] MEDS ORDERED: SODIUM CHLORIDE 0.9% 250ML 250 ML IV ONE (15:15)
--- NOTE | 2018-08-03 15:15 | NUR ---
SIGNED MEDICAL RELEASE
--- NOTE | 2018-08-03 16:08 | NUR ---
ENSURE TO PT PER REQUEST.
[2018-08-03] MEDS: FAMOTIDINE 20 MG/2 ML VIAL IV SCH (16:17)
[2018-08-03] MEDS: METOCLOPRAMIDE HCL 10 MG/2ML VIAL IV SCH ×2 (16:17→21:00)
[2018-08-03] MEDS: INSULIN LISPRO 100 UNIT/1 ML 3ML VIAL SQ SCH ×2 (16:30→16:33)
--- NOTE | 2018-08-03 17:06 | NUR ---
[facility] CALLED PER DR GREER AND SCHEDULED DIALYSIS FOR TOMORROW NOT TODAY. [phone]
--- NOTE | 2018-08-03 17:14 | NUR ---
SPOKE WITH JAH MCNEAL FOR VERY LENGTHY NAD DETAILED REPEATING INFORMATION CALL TO NOTIFY THEM TO HAVE DIALYSIS FOR PT TOMORROW PER DR GREER...
--- NOTE | 2018-08-03 17:33 | NUR ---
RECEIVED LG AMT OF MEDICAL RECORDS ONTO ER CHART FROM JULIO
[2018-08-03 17:48] LABS: CREATINE KINASE MB 1.4 ng/mL (0-5.0)
--- NOTE | 2018-08-03 17:50 | NUR ---
AWAKE/ALERT EATING FOOD TRAY. VSS.
[2018-08-03 18:09] LABS: ANION GAP 20.3 mmol/L (8-16); CALCIUM 8.1 mg/dL (8.4-10.2); CREATININE, SERUM 5.88 mg/dL (0.57-1.11); POTASSIUM 4.3 mmol/L (3.5-5.1)
[2018-08-03] MEDS ORDERED: SODIUM CHLORIDE 0.9% 50ML 50 ML ONE (18:55)
[2018-08-03] MEDS ORDERED: IOPAMIDOL 370 MG/ML 200 ML INFUS..BTL INJ ONE (18:55)
--- NOTE | 2018-08-03 19:00 | NUR ---
REPORT TO JJ
[2018-08-03] MEDS ORDERED: ISOSORBIDE DINI20 MG PO (19:01)
[2018-08-03] MEDS ORDERED: FUROSEMIDE40 MG PO (19:01)
[2018-08-03] MEDS ORDERED: ATORVASTATIN CA20 MG PO (19:01)
[2018-08-03] MEDS ORDERED: COREG12.5 MG PO (19:01)
[2018-08-03] MEDS ORDERED: CLONIDINE HCL0.1 MG PO (19:01)
[2018-08-03] MEDS ORDERED: SERTRALINE HCL100 MG PO (19:01)
[2018-08-03] MEDS ORDERED: LORAZEPAM0.5 MG PO (19:01)
[2018-08-03] MEDS ORDERED: GABAPENTIN300 MG PO (19:01)
[2018-08-03] MEDS ORDERED: AMLODIPINE BESY10 MG PO (19:01)
[2018-08-03] MEDS ORDERED: SORE THROAT LO1 EAC3 PO (19:01)
[2018-08-03] MEDS ORDERED: HYDRALAZINE HCL25 MG PO ×2 (19:01)
[2018-08-03] MEDS ORDERED: LISINOPRIL10 MG PO (19:01)
[2018-08-03] MEDS ORDERED: ASPIR 8181 MG PO (19:01)
[2018-08-03] MEDS ORDERED: CLOPIDOGREL75 MG PO (19:01)
[2018-08-03 19:50] VITALS: BP 104/52
[2018-08-03] MEDS: MORPHINE SULFATE INJ 4 MG/ML INJ 1ML IV PRN (20:44)
[2018-08-03] MEDS: ONDANSETRON HCL INJ 2MG/ML 2ML 2 MG/ML VIAL IV PRN (20:44)
--- NOTE | 2018-08-03 20:56 | NUR ---
PT IS TRANSFERRED FROM ER .PT IS AOX3 RESPIRATIONS ARE EVEN AND UNLABORED .PT HAS EMERITA DRAINAGE AT RT SIDE OF THE ABD D/T S/P SUDHA .RT FOOT TOES ARE AMPUTATED KRISTINA CATHETER RT SUBCLAVIAN LEFT FOOT 5 THE TOE AMPUTATED .PT HAS F/C DRAINING BROWN COLOR URINE PT IS BEDRIDDEN .BRUISING TO THE ABDOMEN AND RT SIDE OF THE NECK .REDNESS TO TH SACRUM .PT C/O PAIN .NO PAIN MEDICATION INTHE LIST .CALLED DR SANTAMARIA AND GOT THE ORDER TO GIVE MORPHINE 4MG Q4HRS .GIVEN ORDERED PAIN MEDICATION.CALL LIGHT WITH IN REACH CONTINUE TO MONITOR
--- NOTE | 2018-08-03 20:57 | History and Physical ---
HISTORY OF PRESENT ILLNESS: A 57-year-old female with past medical history positive for status post cholecystectomy with right upper quadrant EMERITA drain at Hospital, history of end-stage renal disease, on dialysis, diabetes, hypertension, coronary artery disease, peripheral vascular disease, diabetic gastroparesis, came here with vomiting, abdominal pain. they could not take the patient back, so we admitted the patient over here. REVIEW OF SYSTEMS: CARDIOVASCULAR: No chest pain or palpitation. RESPIRATORY: No shortness of breath, no cough. GASTROINTESTINAL: She had nausea, vomiting, abdominal pain. ALLERGIES: SHE IS ALLERGIC TO CEPHALEXIN. SOCIAL HISTORY: She does not smoke. She does not drink. PAST MEDICAL HISTORY: Diabetes, hypertension, end-stage renal disease on dialysis, peripheral vascular disease, gastroparesis, left CVA with right hemiparesis. PHYSICAL EXAMINATION: VITAL SIGNS: Blood pressure 111/60, temperature 98.3, heart rate 72 per minute, respiratory rate 17 per minute, oxygen saturation 100%. She was hypotensive when she came here. LABORATORY DATA: On the BMP, sodium 139, potassium 4.2, chloride 97, CO2 of 26, BUN 35, creatinine 5.63, glucose of 112. On the CBC, white blood count 10.6, hemoglobin 9.2, hematocrit 30.3, platelet count 374,000. PT is 13.5, INR is 0.98, PTT 42.8. AST 12, ALT 13, total bilirubin 0.4, alkaline phosphatase 108. On the CT of the abdomen and pelvis, we have the following report. Postoperative changes from cholecystectomy, 7 cm air and fluid collection at the operative site. Then we have a chest x-ray, which showed no evidence of acute disease in the chest. We have a foot x-ray on the right foot, showed transmetatarsal amputation at the base of the 1st and 5th metatarsal is nonspecific and may be related to generalized osteopenia, although involvement by osteomyelitis . FINAL IMPRESSION: 1. Abdominal pain. 2. Vomiting. 3. Coronary artery disease, status post stent placement, status post myocardial infarction in the past. 4. Peripheral vascular disease, status post stent. 5. End-stage renal disease, on dialysis. 6. Uncontrolled diabetes mellitus, type 2, with end-stage renal disease. 7. Gastroparesis secondary to diabetic gastroparesis. 8. Hypertension with end-stage renal disease. 9. Left cerebrovascular accident with right hemiparesis. PLAN OF TREATMENT: We are going to consult Dr. Nicholas for Nephrology because the patient is on dialysis, Dr. Fischer for surgery because of the recent surgery and a fluid collection in the right upper quadrant. She is going to be on meropenem 500 mg daily. She is going to be on for hypoglycemia, Pepcid 20 mg IV twice a day. Monitor blood sugar at a.c. and at bedtime with medium dose sliding scale. She is on metoclopramide 10 mg IV q.6 hours for vomiting, Zofran 4 mg IV q.4 hours as needed for vomiting, Protonix 40 mg IV daily. She will receive IV fluids also. Blood pressure is stable right now. MD JACOB Hernandez/VANGIE /[id number]
[2018-08-04] VITALS (8 sets, daily range): BP systolic 93–114; BP diastolic 48–54
[2018-08-04] MEDS: FAMOTIDINE 20 MG/2 ML VIAL IV SCH ×2 (00:15→13:13)
--- NOTE | 2018-08-04 00:27 | Consultation ---
DATE OF CONSULTATION: REASON FOR CONSULT: ESRD. HISTORY OF PRESENT ILLNESS: This is a 57-year-old female with end-stage renal disease on hemodialysis, Thursday, , Thursday, who had nausea and vomiting and was brought to the emergency room, but did not go to her dialysis unit. The patient apparently had a cholecystectomy with a EMERITA done last week at [facility]. Complaining of nausea and vomiting. Antibiotics started. ALLERGIES: KEFLEX. CURRENT MEDICATIONS: Reviewed. The patient received vancomycin and meropenem. LABS: Hemoglobin 9.2, hematocrit 30. Sodium 139, potassium 4.2, BUN 35, creatinine 5.63. PAST MEDICAL HISTORY: 1. ESRD. 2. Peripheral arterial disease. 3. Hypertension. 4. CVA. 5. Coronary artery disease. 6. Type 2 diabetes mellitus, diet controlled. PAST SURGICAL HISTORY: Includes: 1. Dialysis line. 2. One month ago all toes amputated of the right foot. 3. Left great toe and 5th toe amputated. 4. EMERITA drainage, status post cholecystectomy. 5. Endarterectomy. FAMILY HISTORY: Noncontributory. REVIEW OF SYSTEMS: Positive nausea, positive vomiting, positive for not feeling well, positive multiple wound status post surgery. No blood in the stool. No blood in the urine. No new sensory loss such as vision. No change in hearing. No skin changes. No enlarged lymph nodes. Basically, otherwise negative. PHYSICAL EXAMINATION: GENERAL: Alert, following commands HEENT: Pupils are equal and reactive to light and accommodation. NECK: No JVD. No bruits. LUNGS: No rhonchi. No rales. HEART: Regular rate and rhythm. No S3. No S4. ABDOMEN: Nontender, nondistended. No hepatomegaly or splenomegaly. Positive EMERITA drainage. EXTREMITIES: No clubbing, no cyanosis. No edema status post surgery and toe amputations. ASSESSMENT AND PLAN: 1. ESRD, on hemodialysis. The patient will be dialyzed tomorrow instead of TTS, so this week would be Thursday, Thursday, Thursday. 2. Anemia of chronic disease. We will start her on Epogen tomorrow with dialysis. 3. Hypotensive at this time, probably septic. Currently, continue IV antibiotics. 4. Surgery was consulted and following up on the EMERITA drain. 5. Peripheral arterial disease with multiple wounds. We will continue current care. MD CASPER Whaley /[id number]
--- NOTE | 2018-08-04 05:08 | NUR ---
PT RESTED DURING THE NIGHT F/C AND EMERITA DRAINAGE INTACT .CALL LIGHT WITH IN REACH .CONTINUE TO MONITOR
[2018-08-04 06:12] LABS: BASOPHILS # (AUTO) 0.1 (0.0-0.1); BASOPHILS % 0.6 % (0.0-1.0); EOSINOPHILS # (AUTO) 0.3 (0.0-0.4); EOSINOPHILS % 3.8 % (0.0-6.0); HEMATOCRIT 26.1 % (34.2-44.1); HEMOGLOBIN 7.8 g/dL (12.0-16.0); LYMPHOCYTES % 22.4 % (18.0-39.1); MEAN CORPUSCULAR HEMOGLOBIN 27.1 pg (28-32); MEAN CORPUSCULAR HGB CONC 29.9 g/dL (31-35); MEAN CORPUSCULAR VOLUME 90.6 fL (81-99); MONOCYTES # (AUTO) 0.5 (0.2-0.8); MONOCYTES % 5.7 % (4.4-11.3); NEUTROPHILS # (AUTO) 5.8 (2.1-6.9); PLATELET COUNT 343 x10e3/uL (140-360); RED BLOOD COUNT 2.88 x10e6/uL (3.6-5.1); RED CELL DISTRIBUTION WIDTH 17.5 % (11.7-14.4)
[2018-08-04 06:43] LABS: ALBUMIN/GLOBULIN RATIO 0.5 (0.8-2.0); ANION GAP 20.1 mmol/L (8-16); CALCIUM 7.8 mg/dL (8.4-10.2); CHOL/HDL RATIO 2.9 (3.0-3.6); CREATININE, SERUM 6.05 mg/dL (0.57-1.11); POTASSIUM 4.1 mmol/L (3.5-5.1)
[2018-08-04 06:50] LABS: CREATINE KINASE MB 1.2 ng/mL (0-5.0)
[2018-08-04] MEDS: ONDANSETRON HCL INJ 2MG/ML 2ML 2 MG/ML VIAL IV PRN (07:23)
[2018-08-04] MEDS: MORPHINE SULFATE INJ 4 MG/ML INJ 1ML IV PRN ×3 (07:23→19:12)
--- NOTE | 2018-08-04 07:23 | NUR ---
REPORT GIVEN TO THE ONCOMING NURSE .
[2018-08-04] MEDS: INSULIN LISPRO 100 UNIT/1 ML 3ML VIAL SQ SCH ×4 (07:30→21:08)
[2018-08-04] MEDS ORDERED: HEPARIN SOD (PORCINE) 1000 UNIT/ML SDV IV PRN (08:30)
[2018-08-04] MEDS ORDERED: SODIUM CHLORIDE 0.9% 250ML 500 ML IV PRN (08:30)
[2018-08-04] MEDS ORDERED: MANNITOL 25% 12.5GM/50 ML VIAL IV PRN (08:30)
[2018-08-04] MEDS ORDERED: SODIUM CHLORIDE 0.9% 1000ML 2,000 ML IV PRN (08:30)
[2018-08-04] MEDS ORDERED: PANTOPRAZOLE 40 MG 10ML VIAL IV SCH (09:00)
[2018-08-04] MEDS: METOCLOPRAMIDE HCL 10 MG/2ML VIAL IV SCH ×4 (09:41→21:11)
[2018-08-04] MEDS: EPOETIN ALFA 10000 UNIT/ML VIAL SC SCH (13:13)
[2018-08-04] MEDS: MEROPENEM 500MG 500 MG in SODIUM CHLORIDE 0.9% 50ML 50 ML IV SCH (13:14)
[2018-08-04 14:53] LABS: CREATINE KINASE MB 1.5 ng/mL (0-5.0)
[2018-08-04] MEDS ORDERED: VANCOMYCIN 1GM/NS 250 ML 250 ML IV ONE (15:45)
--- NOTE | 2018-08-04 16:23 | NUR ---
WOUND CARE CONSULTATION - INITIAL EVALUATION Patient admitted to ER from Home for nausea/ vomiting and abdominal pain. SX Dehiscence to right foot TMA. WC Consulted for foot ulcer and sacral ulcers HX: ESRD, HD , S/P Cholecystectomy with EMERITA Drain in place to RUQ of abdomen, DM, HTN, CAD, PVD, PAD with stent placement to right LE, Diabetic Gastroparesis. LABS: WBC 10.63 HGB2.88 HCT26.1 NEUT%66 GLU85 ALB2 XRay - OM to Right TMA PATIENT VISIT: - Dr. Croft in at time of visit. Plan discussed. - Patient to get MRI of Foot to confirm Osteomyelitis findings per X-ray. - Dr. Leena Mari consulted for Foot Ulcer management - Dr Murillo on case for continued IV ABX therapy. - IV ABX added - Vancomycin ( on HD Days) - Presents with full thickness ulcer to right foot. Painful to touch with guarding. Temporary dressing applied. 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 Area dehisced. States she was recommended to have BKA due to poor circulation but does not want one. - Swabbed right TMA for Wound Culture during visit & walked to lab. - Right neck - Self Inflicted Scratches.-Stable. - Sacrogluteal area - Stage 1 Pressure Ulcer Present on admission. - Detailed WC assessment note linked to this note. IMPRESSION: 1. Sacrogluteal - Stage II - POA 2. Right TMA- Surgical Dehiscence- POA. ( PVD, PAD. DM) 3. Right Neck - Self Inflicted Wound -Scratch. RECOMMENDATION: 1. Sacrogluteal - Stage II - POA - Venelex and Cover with Allevyn Foam Sacrum Dressing Daily 2. Right TMA- Surgical Dehiscence. - Betadine Moistened gauze dressing daily. 3. Right Neck - Self Inflicted Skin Tear - - Cleanse with Normal Saline - Apply Xeroform Single Layer and Cover with 4x4 gauze and secure with hypafix tape daily 4. Continue Alternating Pressure Air Mattress 5. Moderate PUP Protocol 6. Turn and Reposition every 2 Hours 7. Bilateral Heel Protectors / Offload heels with pillows while in bed. Thank you for consulting with Wound Care. Discharge Planning: [place] for continued IV ABX and Wound Care per Dr. Croft. Addendum: 08/04/18 at 1637 by Berto Kendrick RN Amended: Links added.
[2018-08-04] MEDS: LORAZEPAM 0.5 MG TAB PO PRN (16:26)
[2018-08-04] MEDS ORDERED: FUROSEMIDE 40 MG TAB PO SCH (17:00)
[2018-08-04] MEDS ORDERED: CARVEDILOL 12.5 MG TAB PO SCH (17:00)
[2018-08-04] MEDS ORDERED: HYDRALAZINE HCL 25 MG TAB PO SCH ×2 (17:00→22:00)
--- NOTE | 2018-08-04 17:34 | Diagnostic Imaging Report ---
TECHNIQUE: Magnetic resonance imaging of the RIGHT foot was performed WITHOUT injected contrast. HISTORY: Incidental renal disease, toes removed 4 weeks ago, rule out osteomyelitis COMPARISON: Right foot radiographs August 03, 2018. DISCUSSION: Bone: Status post transmetatarsal amputation at the level of the proximal metadiaphyses. The resection margin of the second metatarsal bone is exposed to nearly exposed. Moderate bone marrow edema within the residual metadiaphysis of the second metatarsal bone. Subtle hypointense bone marrow signal along the resection margins of the second and third metatarsal bones. The remaining bone marrow signal appears well preserved. Mild bone marrow edema in the residual diaphysis of the third metatarsal bone. Joints: Mild degenerative changes of the midfoot. No effusion. Soft Tissues: Moderate regional soft tissue edema. Apparent soft tissue defect overlying the residual second metatarsal bone. No drainable fluid collection. IMPRESSION: 1. Intermediate probability of subtle osteomyelitis along the resection margin of the second metatarsal bone greater than the adjacent third metatarsal bone. 2. Low probability of osteomyelitis involving the residual first, fourth or fifth metatarsal bones. 3. No soft tissue abscess. Signed by: Dr. Jhonatan Fishman D.O., M.M.M. on 08/04/2018 5:31 PM
--- NOTE | 2018-08-04 17:56 | Consultation ---
DATE OF CONSULTATION: 08/04/2018 Surgical Consultation REASON FOR CONSULTATION: Abdominal pain. HISTORY OF PRESENT ILLNESS: This 57-year-old female was admitted to the hospital after presenting to the emergency room with a history of having developed some abdominal pain and nausea earlier in the day. The patient has a history of having had a laparoscopic cholecystectomy at [facility] four days ago at which time she had a Kennedy-Hester drain for reasons that are not clear and was then discharged home, but because [facility] is on drive-by when she developed nausea and vomiting, she was brought to this hospital. Her surgeon at [facility] was glad to accept her in transfer, however, there were no beds available, so the patient remained here and we were asked to see the patient in consultation. The patient also has a longstanding history of diabetic gastroparesis and longstanding history of nausea as a result of that. She has had normal bowel movements over the last 48 hours. This morning, when we are seeing the patient, she is denying any abdominal pain, her nausea has cleared up and she is hungry. PAST MEDICAL HISTORY: Remarkable for diabetes, coronary artery disease, peripheral vascular disease, hypertension, renal failure on dialysis, previously described cholecystectomy. MEDICATIONS: Please refer to MAR. REVIEW OF SYSTEMS: Otherwise unremarkable. ALLERGIES: NONE. PHYSICAL EXAMINATION: GENERAL: Revealed a female lying in bed, in no acute distress, receiving her scheduled dialysis. She was afebrile. VITAL SIGNS: Stable. HEAD, EYES, EARS, NOSE, AND THROAT: Showed no acute inflammation. NECK: No nodes, masses, or bruits. LUNGS: Clear to auscultation. HEART: Regular rhythm. ABDOMEN: Soft, nontender. There were no palpable masses. The Kennedy-Hester drain in the right upper quadrant was draining clear serous fluid. There was no guarding or rebound present. EXTREMITIES: Good femoral pulses bilaterally. DATA: CT scan of the abdomen that was done showed the patient to have an air-fluid collection in the gallbladder fossa, which is more than likely consistent with a simple postoperative state from the recent cholecystectomy. ASSESSMENT: The patient is four days status post laparoscopic cholecystectomy. Her nausea and vomiting have now resolved. They may have very well been the result of pain medication in conjunction with her old diabetic gastroparesis. There is no sign of any acute surgical abdomen, she is not septic and at this point, her symptoms seem to have resolved. PLAN: I think the patient can be placed on a full liquid diet and if she tolerates as well as she has been doing, she can be discharged tomorrow to be followed up by her normal surgeon later this week for removal of the Kennedy-Hester drain. There is no need at this point to do any drainage of the gallbladder fossa collection as this is probably just a normal postop fluid collection and the patient does not seem to be symptomatic at all from this. Thank you very much for asking me to see this patient. MD MAHENDRA Khalil/VANGIE /[id number]
--- NOTE | 2018-08-04 18:56 | Progress Note ---
DATE: SUBJECTIVE: The patient is doing well, tolerating the diet today. She was tolerating her dialysis. OBJECTIVE: HEART: Showed regular rhythm. No murmur or added sound. LUNGS: Clear bilaterally. ABDOMEN: Soft. She got a EMERITA tube drain in place. VITAL SIGNS: Blood pressure 114/54, temperature 37.9, heart rate 82 per minute, respiratory rate 18 per minute, and O2 saturation 100%. LABORATORY DATA: BMP, sodium 136, potassium 4.1, chloride 96, CO2 24, BUN 41, creatinine 6.05, and glucose 85. CBC, white count 8800, hemoglobin 7.8, hematocrit 26.1, platelet count 643,000. PT 13.5, INR 0.98, and PTT 42.8. AST 88, total bilirubin 0.2, alkaline phosphatase was 89. IMPRESSION: 1. Abdominal pain. 2. Vomiting. 3. Coronary artery disease, status post stent placement. 4. Peripheral vascular disease. 5. End-stage renal disease, on dialysis. 6. Uncontrolled diabetes mellitus type 2 with end-stage renal disease. 7. Gastroparesis secondary to diabetes. 8. Hypertension with end-stage renal disease. 9. Cerebrovascular accident with right hemiparesis. PLAN OF TREATMENT: Continue dialysis. Continue meropenem 500 mg IV daily. Continue with for hyperglycemia. Zofran 4 mg IV q.4 hours as needed. Heparin 5000 units subcutaneous as needed. Pepcid 20 mg twice a day. Protonix 40 mg daily. Epogen 5000 units Thursday, Thursday, Thursday. Monitor blood sugar before meals and at bedtime. Morphine 4 mg IV q.4 hours as needed. Metoclopramide 10 mg before meals and at bedtime. I am going to start the patient on diabetic renal diet. Tentative discharge for tomorrow. MD JACOB Hernandez/VANGIE /[id number]
--- NOTE | 2018-08-04 19:20 | NUR ---
Received report from previous shift. Patient in no pain or distress. call light within reach.
[2018-08-04] MEDS ORDERED: CLONIDINE HCL 0.1 MG TAB PO SCH (21:00)
[2018-08-04] MEDS ORDERED: VANCOMYCIN HCL 750 MG in SODIUM CHLORIDE 0.9% 100 ML 150 ML IV SCH ×4 (21:00)
[2018-08-04] MEDS ORDERED: ATORVASTATIN 20 MG TAB PO SCH (21:00)
[2018-08-04] MEDS: GABAPENTIN 300 MG CAP PO SCH (21:06)
[2018-08-04] MEDS: SERTRALINE HCL 100 MG TAB PO SCH (21:07)
[2018-08-05] VITALS (8 sets, daily range): BP systolic 91–137; BP diastolic 49–61
--- NOTE | 2018-08-05 01:42 | History and Physical ---
REASON FOR CONSULTATION: Infection of the stump. HISTORY OF PRESENT ILLNESS: This patient who is a very pleasant 57-year-old white female with history of end-stage renal disease on hemodialysis, disease, neuropathy, diabetes mellitus, gastroparesis, left CVA with right hemiparesis and peripheral vascular disease. The patient underwent TMA of her right foot back in June. She was doing well. She was presenting with dehiscence of the wound. No fever. No chills. Some pain. The patient is not a good source of information, but the history was taken mainly from the chart. Discussed with Internal Medicine. Discussed with Podiatry. The patient is currently lying in bed comfortably with no complaints as mentioned above. PAST MEDICAL HISTORY: Diabetes mellitus with neuropathy, peripheral vascular disease, hypertension, and end-stage renal disease on hemodialysis. PAST SURGICAL HISTORY: TMA, IV access for dialysis with cholecystectomy. ALLERGIES: NKA. SOCIAL HISTORY: There is no smoking, drug abuse or alcohol abuse. FAMILY HISTORY: Negative for hypertension. REVIEW OF SYSTEMS: HEENT: Negative. PULMONARY: Negative. CARDIAC: Negative. : Negative. SKIN: Negative. JOINT: Negative. : Negative. GI: Negative. LABORATORY DATA: White count is 8.8, hemoglobin 7.8. Sodium 136, potassium 4.1, creatinine 6.65. The patient had an MRI of her foot, which shows intermediate probability for osteomyelitis along the suction side. PHYSICAL EXAMINATION: GENERAL: She is currently alert, oriented, does not seem to be in acute distress. VITAL SIGNS: Stable, currently afebrile. HEENT: Normocephalic. . NECK: Supple. No JVD. No thyromegaly. CHEST: Clear bilateral. HEART: S1, S2. No S3, S4 or murmur. ABDOMEN: Soft. Bowel sounds present . EXTREMITIES: There are gangrenous changes with dehiscence noted alongside of the wound. IMPRESSION: 1. Dehiscence of the wound after TMA more than 2 months, concerned about osteomyelitis, concerned about peripheral vascular disease. I agree with vancomycin. I agree with meropenem. We would do vancomycin after each hemodialysis. meropenem 500 mg daily. Vascular workup. May need further debridement. We will follow with you. 2. End-stage renal disease. 3. Diabetes mellitus. 4. Neuropathy. MD ANUSHA Kaur/MODL /[id number]
--- NOTE | 2018-08-05 01:53 | Consultation ---
DATE OF CONSULTATION: 08/04/2018 REASON FOR CONSULTATION: Ulceration to the right foot with the patient being a diabetic for 20 plus years. HISTORY OF PRESENT ILLNESS: This is a 57-year-old white female, who is seen at bedside, who denies any history of fever, chills, nausea, or vomiting, who came in with right upper quadrant pain. The patient has a history of end-stage renal disease, diabetes, coronary artery disease, peripheral arterial disease with hypertension. The patient is basically bed bound and is not able to walk. The patient relates she had a transmetatarsal amputation per more than a month ago. PAST SURGICAL HISTORY: Remarkable for 1st and 2nd toe left foot amputations more than several years ago, TMA approximately a month ago to the right lower extremity, and also had a cholecystectomy. ALLERGIES: PATIENT DENIES. SOCIAL HISTORY: Denies any smoking, drinking, or recreational drug use. Has no kids. Lives with . FAMILY HISTORY: Remarkable for diabetes. CURRENT MEDICATIONS: Listed in the chart including meropenem 500 mg IV piggyback. PHYSICAL EXAMINATION: VITAL SIGNS: Afebrile, pulse rate 90, respirations 20, blood pressure 108/49, and O2 saturation 98%. LABS: Noted as a white blood cell count of 8.8, hemoglobin 7.8, hematocrit 26.1 with a platelet count of 343. Has a blood glucose of 209. INR of 0.98. REVIEW OF SYSTEMS: CARDIAC: Denies any palpitations or arrhythmias. RESPIRATORY: Denies any shortness of breath. GASTROINTESTINAL: Does relate some abdominal pain. PODIATRIC PHYSICAL EXAMINATION: Reveals the following vasculature, pedal pulses of both DP and PT are diminished. Skin temperature is warm and cool to touch. NEUROLOGIC: Reveals loss of protective sensation when utilizing [place]osselyn 5.07 monofilament wire. MUSCULOSKELETAL: Shows muscle mass to be asymmetrical. Some muscle weakness noted, right worse than left. Muscle strength 3/4 to all muscle groups, left foot, 3/3 all muscle groups, right. DERMATOLOGIC: There is an ulceration to the distal aspect right foot measuring 2 x 4 cm in diameter with no apparent bone exposed with positive dorsal cellulitis. ASSESSMENT: Possible osteomyelitis with a grade 2/3 ulceration. PLAN: We will start Iodosorb gel to the affected area. Continue IV antibiotics such as meropenem. Dr. Matteo Devries will be consulted for possible vascular evaluation. We will continue to treat the patient conservatively. NOBLE Olmedo/VANGIE /[id number]
[2018-08-05] MEDS: MORPHINE SULFATE INJ 4 MG/ML INJ 1ML IV PRN ×3 (05:54→16:40)
--- NOTE | 2018-08-05 07:10 | NUR ---
Gave report to oncoming nurse. No pain or distress. call light within reach.
[2018-08-05] MEDS: INSULIN LISPRO 100 UNIT/1 ML 3ML VIAL SQ SCH ×4 (07:30→20:31)
[2018-08-05] MEDS: METOCLOPRAMIDE HCL 10 MG/2ML VIAL IV SCH ×4 (08:04→20:25)
[2018-08-05] MEDS: BALSAM PERU/CASTOR OIL 60 GM OINT...G. TP SCH (08:42)
[2018-08-05] MEDS: GABAPENTIN 300 MG CAP PO SCH ×3 (08:42→20:25)
[2018-08-05] MEDS: CLOPIDOGREL BISULFATE 75 MG TAB PO SCH (08:42)
[2018-08-05] MEDS: ASPIRIN 81 MG CHEW TAB PO SCH (08:42)
[2018-08-05] MEDS: MEROPENEM 500MG 500 MG in SODIUM CHLORIDE 0.9% 50ML 50 ML IV SCH (08:45)
[2018-08-05] MEDS ORDERED: AMLODIPINE BESYLATE 10 MG TAB PO SCH (09:00)
[2018-08-05] MEDS ORDERED: LISINOPRIL 10 MG TAB PO SCH (09:00)
--- NOTE | 2018-08-05 10:49 | NUR ---
ORDERS REC'D FOR LTAC NO LTAC BENEFITS PT HAS RYAN DR SANTAMARIA NOTIFIED ORDERS FOR SNF MED RESORT PT AGREEABLE
[2018-08-05] MEDS: CADEXOMER IODINE 30 GM TUBE TOP SCH (11:30)
--- NOTE | 2018-08-05 15:20 | Progress Note ---
DATE: 08/05/2018 SUBJECTIVE: The patient was seen at bedside, feeling better. Denies any history of fever, chills, nausea, or vomiting. OBJECTIVE: VITAL SIGNS: Afebrile, pulse rate 76, respirations 17, blood pressure 91/49, O2 saturation 92%. LABORATORY DATA: Labs show white blood cell count of 8.8. Ulceration to the right foot getting somewhat better. Pedal pulses are palpable, but diminished. ASSESSMENT: Grade 3 ulcer, peripheral arterial disease with neuropathy and cellulitis with diabetic neuropathy. PLAN: We will continue local wound care. Continue IV antibiotics. Awaiting Dr. Marie for evaluation. Continue conservative wound care. NOBLE Olmedo/VANGIE /[id number]
--- NOTE | 2018-08-05 15:38 | NUR ---
SIGNED CHOICE FOR MEDICAL RESORT FILE DIN CHART
--- NOTE | 2018-08-05 15:38 | NUR ---
NOTIFIED BY MEDICAL REPORT NO SNF BENEFITS. NOTIFIED ARLETH AND SHE NOTIFIED
--- NOTE | 2018-08-05 16:00 | NUR ---
Dr. Marie here to see pt and received orders to obtain records of angiogram and stent placement done 2wks ago at [facility]. Arterial doppler and echo was done.
--- NOTE | 2018-08-05 17:51 | Progress Note ---
DATE: Internal Medicine Progress Note SUBJECTIVE: The patient is sleeping. PHYSICAL EXAMINATION: VITAL SIGNS: Blood pressure 96/60, temperature 97.8, heart rate 77 per minute, respiratory rate 17 per minute, oxygen saturation 96%. HEART: Showed regular rhythm. No murmur or added sound. She did have a systolic murmur. LUNGS: Clear bilaterally. EXTREMITIES: Show dressing on right foot. LABORATORY DATA: On the BMP, sodium 136, potassium 4.1, chloride 96, CO2 24, BUN 41, creatinine 6.05, glucose 85. On the CBC, white count 8.80, hemoglobin 7.8, hematocrit 26.1, platelet count 343,000. PT 13.5, PTT 42.8, INR 0.98. AST 8, ALT 8, total bilirubin 0.2, alkaline phosphatase 89. FINAL IMPRESSION: 1. Right transmetatarsal amputation dehiscence with osteomyelitis. 2. End-stage renal disease, on dialysis. 3. Anemia of chronic disease secondary to end-stage renal disease. 4. Uncontrolled diabetes mellitus type 2 with end-stage renal disease. 5. Peripheral vascular disease. 6. Diabetes mellitus type 2 with diabetic neuropathy. PLAN OF TREATMENT: We are going to continue meropenem 500 mg IV daily, vancomycin 1 g IV on Thursday, Thursday, Thursday. Continue with Zofran 4 mg IV q.4 hours as needed for vomiting, Epogen 5000 units Thursday, Thursday, Thursday; lorazepam 0.5 mg daily, Lipitor 80 mg daily, morphine 4 mg IV q.4 hours as needed, aspirin 81 mg daily, sertraline 100 mg daily. Continue monitoring blood sugar before meals and at bedtime. Continue Plavix 75 mg, balsam heather and castor oil daily, metoclopramide 10 mg before meals and at bedtime, gabapentin 600 mg 3 times a day, cadexomer iodine [address] Helton will be covering for me starting tomorrow, Monday, August 06, 2018, at 7:00 a.m. until discharge or Thursday, August 16, 2018, at 7:00 a.m. The patient will continue current wound care treatment. Dr. Stern has been consulted from the Podiatry point of view, Dr. Murillo for infectious disease point of view, and Dr. Marie for the Cardiovascular point of view because the patient had peripheral vascular disease also. The patient, as I said before, has osteomyelitis on the right foot, peripheral arterial disease, end-stage renal disease on dialysis, anemia of chronic disease, diabetes mellitus with chronic renal insufficiency, hypertension with chronic renal insufficiency, and diabetic neuropathy and diabetic gastroparesis. MD JACOB Hernandez/VANGIE /[id number]
--- NOTE | 2018-08-05 19:47 | NUR ---
Received change of shift report from AM nurse. Rounds completed.
[2018-08-05] MEDS: SERTRALINE HCL 100 MG TAB PO SCH (20:25)
[2018-08-05] MEDS: ATORVASTATIN 40 MG TAB PO SCH (20:25)
[2018-08-06] VITALS (8 sets, daily range): BP systolic 95–128; BP diastolic 52–82
--- NOTE | 2018-08-06 | NUR ---
Patient AAOx3. In bed in supine position. Denies pain at this time. BS 142 Insulin given as ordered. Pt is vision impaired. Tele SR with 1st degree block. Pt has a heart murmur and is aware of it. EMERITA drain noted with small amount serosangous fluid.
--- NOTE | 2018-08-06 01:52 | Progress Note ---
DATE: 08/05/2018 Cardiology Progress Note CONSULTING PHYSICIAN: Matteo Devries MD, Interventional Cardiology. REASON FOR CONSULTATION: Peripheral vascular disease and TMA wound dehiscence. HISTORY OF PRESENT ILLNESS: Ms. Casey is a pleasant 57-year-old woman with a history of end-stage renal disease with scheduled dialysis, diabetes mellitus, coronary artery disease, hypertension, prior CVA with right-sided hemiparesis, history of 1st and 2nd left toe amputation and recent right TMA, presenting with right TMA wound dehiscence and ulceration with associated cellulitis. She reports history of peripheral vascular disease with recent revascularization and stent placement to the right lower extremity at an outside facility within the last two weeks. She does not recall specifics of this procedure. She is admitted for IV antibiotics and care of her wound. She has no complaints at this time including absence of chest pain or shortness of breath. REVIEW OF SYSTEMS: A 12-system review is negative except for as noted above. PAST MEDICAL HISTORY: Includes ESRD, diabetes mellitus, hypertension, coronary artery disease, peripheral vascular disease, CVA. SOCIAL HISTORY: Negative x3. FAMILY HISTORY: Noncontributory. PHYSICAL EXAMINATION: VITAL SIGNS: Temperature 97.8, heart rate 77, blood pressure 96/70, respiratory rate 17, O2 saturation 96%, BMI is 35. GENERAL: No acute distress, alert. NECK: No JVD. CHEST: Clear to auscultation bilaterally. CARDIOVASCULAR: Regular rate and rhythm. Normal S1, increased S2. Crescendo 3/6 systolic ejection murmur radiating to carotids. No S3 or S4. ABDOMEN:Soft, non- tender, status post recent laparoscopic cholecystectomy. EXTREMITIES: Abnormal pedal pulses bilaterally, prior 1st and 2nd toe amputation on the left and right TMA with open wound and fibrinopurulent secretion, erythema surrounding the wound. MEDICATIONS: Cardiovascular medications reviewed. Atorvastatin 80 mg at bedtime, aspirin 81 mg daily, clopidogrel 75 mg daily, heparin p.r.n. LABORATORY DATA: Studies reviewed. Sodium 136, potassium 4.1, chloride 96, bicarbonate 24, BUN 41, creatinine 6.06, glucose 85. White blood cells 8.8, hemoglobin 7.8, platelets 343. INR 0.98. AST 8, ALT 8, total bilirubin 0.2, alkaline phosphatase 89. EKG, sinus rhythm with nonspecific repolarization abnormality, prolonged QT. ASSESSMENT: 1. Peripheral vascular disease, status post recent revascularization at an outside facility, unclear of specifics at this point in time. Presenting with right transmetatarsal amputation dehiscence, active infection, cellulitis, and wound. 2. Systolic ejection murmur on exam, concerning for aortic valve stenosis. Pending echocardiogram confirmation. 3. Diabetes mellitus. 4. End-stage renal disease. 5. Prior cerebrovascular accident with right hemiparesis. 6. Hypertension. 7. Dyslipidemia. RECOMMENDATIONS: 1. Obtain echocardiogram. 2. Obtain arterial Doppler to assess level of disease. 3. Obtain records from recent peripheral angiography and intervention. Further I will dictate our plan. 4. Overall has guarded limb prognosis. Will likely require additional amputation level, which will be determined based on additional follow up studies and clinical picture. 5. Continue dual antiplatelet therapy for now. 6. Low normal blood pressure limiting addition of beta-aquilion at this point in time. 7. Anemia workup advised. Thank you for the opportunity to participate in the care of this nice lady. We will follow up closely with you. MD BarcenasV/JAEL /[id number]
--- NOTE | 2018-08-06 05:47 | NUR ---
Patient resting quitly at this time. No noted pain or discomfort noted. Continue monitor.
[2018-08-06] MEDS: INSULIN LISPRO 100 UNIT/1 ML 3ML VIAL SQ SCH ×4 (07:30→20:18)
[2018-08-06] MEDS: MORPHINE SULFATE INJ 4 MG/ML INJ 1ML IV PRN ×3 (08:52→20:30)
[2018-08-06] MEDS: METOCLOPRAMIDE HCL 10 MG/2ML VIAL IV SCH ×4 (08:54→20:17)
[2018-08-06] MEDS: GABAPENTIN 300 MG CAP PO SCH ×3 (08:58→20:18)
[2018-08-06] MEDS: BALSAM PERU/CASTOR OIL 60 GM OINT...G. TP SCH (08:58)
[2018-08-06] MEDS: CLOPIDOGREL BISULFATE 75 MG TAB PO SCH (08:58)
[2018-08-06] MEDS: ASPIRIN 81 MG CHEW TAB PO SCH (08:58)
[2018-08-06] MEDS: CADEXOMER IODINE 30 GM TUBE TOP SCH (09:00)
--- NOTE | 2018-08-06 13:20 | Progress Note ---
DATE: 08/06/2018 SUBJECTIVE: Ms. Casey is a 57-year-old female with history of diabetes, end-stage renal disease on hemodialysis, coronary artery disease status post stent, peripheral artery disease status post stent, left CVA with right hemiparesis, came to the emergency room complaining of abdominal pain and vomiting. She was found to have infection in her left foot with osteomyelitis, started on wound care, IV antibiotics. PHYSICAL EXAMINATION: GENERAL: Today, she is awake and alert. She is feeling better. VITAL SIGNS: Temperature is 97.5, blood pressure 111/77. HEART: Regular rate. LUNGS: Poor inspiratory effort. ABDOMEN: Soft. LABORATORY DATA: On the blood work, white count 8.80, hemoglobin 7.8, hematocrit 26.1. Glucose 142. Hepatitis profile is pending. Blood cultures have been so far negative. MRI of the foot shows probability of osteomyelitis in the second metatarsal bone in the resection margin. Abdominal and pelvic CT show postoperative changes of cholecystectomy and 7 cm area of fluid collection at the operative site. ASSESSMENT: 1. Right transmetatarsal amputation dehiscence with osteomyelitis. 2. Diabetes type 2 with end-stage renal disease. 3. End-stage renal disease, on hemodialysis. 4. Anemia secondary to chronic kidney disease. 5. Peripheral artery disease status post stent. 6. Diabetes type 2 with diabetic neuropathy. 7. Coronary artery disease status post stent. 8. Left cerebrovascular accident with right hemiparesis. PLAN: The plan at present time is to continue IV antibiotics, continue wound care. She is on dialysis three times a week, on Epogen for her anemia. The patient is being followed up also by Podiatry, Dr. Stern; Infectious Disease, Dr. Murillo; Cardiovascular, Dr. Marie. She is going to have echocardiogram, arterial Doppler. Continue dual antiplatelet therapy. All this was discussed with the patient. All questions were answered to satisfaction. MD RAKESH Montano/VANGIE /[id number]
[2018-08-06] MEDS: EPOETIN ALFA 10000 UNIT/ML VIAL SC SCH (13:56)
[2018-08-06] MEDS: MEROPENEM 500MG 500 MG in SODIUM CHLORIDE 0.9% 50ML 50 ML IV SCH (13:56)
--- NOTE | 2018-08-06 14:23 | NUR ---
PATIENT COMPLETED DIALYSIS: 1 LITER REMOVED. PATIENT IN STABLE CONDITION WITH NO S/S OF RESPIRATORY DISTRESS. NO PAIN VOICED. IV ANTIBIOTIC INFUSING. CALL LIGHT IS WITHIN REACH, INSTRUCTED TO CALL FOR ASSISTANCE NEEDED.
--- NOTE | 2018-08-06 14:56 | NUR ---
Nutrition Screen Note RD Recommendation for Physician: -Continue renal/ ADA diet as ordered Plan of Care: RD following, monitoring for tolerance and adequacy Nutrition reason for involvement: Diagnosis Primary Diagnose(s): Right transmetatarsal amputation dehiscence with osteomyelitis. PMH: diabetes, end-stage renal disease on hemodialysis, coronary artery disease status post stent, peripheral artery disease status post stent, left CVA with right hemiparesis Ht: 60.8in Wt: 186lb BMI: 35.4kg/m2 IBW: 100lb RD Assessment: (08/06) Chart reviewed. Labs and meds reviewed. 57yo F, who was admitted for abdominal pain, nausea and vomiting. Pt will be receiving HD today. Placement pending. Visited pt in room who denied significant wt loss, denied decrease in appetite SOLE MOLDER. Pt denied chewing/swallowing problems and nausea/vomiting. 50-75% meal intake was recorded since admission. Will continue to monitor and follow. Please consult as needed. Current Diet: renal diabetic diet Malnutrition Evaluation (08/06) The patient does not meet criteria for a specified degree of malnutrition at this time. Will re-evaluate at follow-up as appropriate. Diet Education Needs Assessment: Diet education not indicated. followed by RD at [facility] Level: low Signed: Linh Bermeo, , RD, LD
--- NOTE | 2018-08-06 15:30 | Progress Note ---
DATE: 08/06/2018 SUBJECTIVE: The patient seen at bedside, doing somewhat better. OBJECTIVE: VITALS SIGNS: Afebrile, pulse rate 77, respirations 18, blood pressure 111/77, O2 saturation 91%. EXTREMITIES: Ulceration stable for the distal aspect of the right foot. Some drainage. Negative foul smell. No bone exposed. Ulcer down to muscle. ASSESSMENT: Grade 3 ulceration with peripheral arterial disease and neuropathy. PLAN: We will continue local wound care, continue IV vancomycin, continue conservative treatment, continue offloading. NOBLE Olmedo/VANGIE /[id number]
[2018-08-06] MEDS: VANCOMYCIN HCL 750 MG in SODIUM CHLORIDE 0.9% 100 ML 150 ML IV SCH (16:56)
--- NOTE | 2018-08-06 19:28 | NUR ---
Received change of shift report from AM nurse. Rounds completed.
[2018-08-06] MEDS: ATORVASTATIN 40 MG TAB PO SCH (20:18)
[2018-08-06] MEDS: SERTRALINE HCL 100 MG TAB PO SCH (20:18)
--- NOTE | 2018-08-06 23:01 | Progress Note ---
DATE: 08/06/2018 Cardiology Progress Note SUBJECTIVE: No new complaints today. Undergoing dialysis. Discussed at length echocardiographic findings and plan of care. OBJECTIVE: VITAL SIGNS: Temperature 97.5, heart rate 77, blood pressure 111/77, respiratory rate 18, O2 saturation 91%, BMI of 35. GENERAL: No acute distress. Alert. NECK: No JVD. CHEST: Clear to auscultation. CARDIOVASCULAR: Regular rate and rhythm. Normal S1 and S2. Systolic crescendo ejection murmur, 3/6. No S3 or S4. ABDOMEN: Soft. EXTREMITIES: Trace edema with an ulcer at her right TMA. MEDICATIONS: Cardiovascular medications reviewed. Atorvastatin 80 mg at bedtime, aspirin 81 mg daily, clopidogrel 75 mg daily. Also, vancomycin and meropenem antibiotics. LABORATORY DATA: Studies reviewed. Sodium 136, potassium 4.1, chloride 96, bicarbonate 24, BUN 41, creatinine 6, glucose 85. White blood cells 8.8, hemoglobin 7.8, platelets 343. INR 0.9. Echocardiogram reveals hyperdynamic left ventricular systolic function with left ventricular ejection fraction of more than 70%, mild LVH, aortic stenosis, moderate to severe with aortic valve area of 1.2 cm2 by continuity equation, mean aortic valve gradient of 32.6 mmHg and a peak aortic valve gradient of 52.8 mmHg. There is mild aortic insufficiency, mild mitral regurgitation, and mild tricuspid regurgitation. Reviewed the operative report from 07/22/2018, at [facility] revealing the following procedure performed, right peroneal atherectomy and FOOT ROENTGENOLOGIST and right SFA atherectomy and FOOT ROENTGENOLOGIST. Arterial Doppler of lower extremity has been ordered and is still pending, however, to be done today. ASSESSMENT: 1. Dehiscence in wound at the right transmetatarsal amputation site with associated cellulitis. 2. Anemia. 3. Severe peripheral vascular disease, status post right superficial femoral artery and peroneal atherectomy and percutaneous transluminal angioplasty on 07/22/2018. 4. Guemnlen-tz-ehnnxb aortic valve stenosis with a valve area of 1.2 cm2 and mean gradient of 32 mmHg. 5. End-stage renal disease, on scheduled dialysis. 6. Hypertension. 7. Dyslipidemia. 8. Prior stroke. RECOMMENDATIONS: 1. Await arterial Doppler to further assess vascular status following recent revascularization. Further recommendations to follow. 2. Has rxchrvaj-ta-tnbdry aortic stenosis, which will warrant close monitoring with echocardiogram and clinically every 3 months or sooner should the symptoms indicate. 3. Anemia workup advised. 4. Overall guarded prognosis. MD KHADIJAH Boo/JAEL /[id number]
[2018-08-07] VITALS (8 sets, daily range): BP systolic 102–130; BP diastolic 42–72
[2018-08-07] MEDS: MORPHINE SULFATE INJ 4 MG/ML INJ 1ML IV PRN ×3 (03:32→18:09)
--- NOTE | 2018-08-07 06:42 | NUR ---
Patient requested pain meds for gen pain. Meds given as order.
--- NOTE | 2018-08-07 06:58 | NUR ---
PATIENT IN STABLE CONDITION WITH NO S/S OF RESPIRATORY DISTRESS. NO PAIN VOICED. TELEMETRY APPLIED. CALL LIGHT IS WITHIN REACH, INSTRUCTED TO CALL FOR ASSISTANCE NEEDED. BED ALARM ON.
[2018-08-07] MEDS: INSULIN LISPRO 100 UNIT/1 ML 3ML VIAL SQ SCH ×4 (07:30→21:23)
[2018-08-07] MEDS: GABAPENTIN 300 MG CAP PO SCH ×3 (07:59→21:23)
[2018-08-07] MEDS: METOCLOPRAMIDE HCL 10 MG/2ML VIAL IV SCH ×4 (07:59→21:23)
[2018-08-07] MEDS: CLOPIDOGREL BISULFATE 75 MG TAB PO SCH (07:59)
[2018-08-07] MEDS: ASPIRIN 81 MG CHEW TAB PO SCH (07:59)
[2018-08-07] MEDS: BALSAM PERU/CASTOR OIL 60 GM OINT...G. TP SCH (08:55)
[2018-08-07] MEDS: CADEXOMER IODINE 30 GM TUBE TOP SCH (08:55)
[2018-08-07] MEDS ORDERED: HEPARIN SOD (PORCINE) 1000 UNIT/ML SDV IV PRN (09:00)
--- NOTE | 2018-08-07 10:57 | NUR ---
CALL PLACED OUT TO DR. SANZ (COVERING FOR DR. SANTAMARIA) REGARDING PAIN MEDICATION- AWAITING CALLBACK.
[2018-08-07] MEDS ORDERED: LEVOFLOXACIN 500MG/D5W 100ML 100 ML IV SCH (11:30)
[2018-08-07] MEDS: ACETAMINOPHEN 325 MG TAB PO PRN (12:57)
[2018-08-07] MEDS: FLUCONAZOLE 100 MG TAB PO SCH (12:57)
--- NOTE | 2018-08-07 13:18 | NUR ---
PATIENT COMPLETED DIALYSIS- NO OUTPUT WAS REMOVED. CURRENT BP 130/60; HR 70
[2018-08-07] MEDS: MEROPENEM 500MG/ NS 50ML 50 ML IV SCH (13:31)
--- NOTE | 2018-08-07 16:31 | Progress Note ---
DATE: 08/07/2018 SUBJECTIVE: The patient seen at bedside, doing well, getting dialyzed. OBJECTIVE: VITAL SIGNS: Afebrile, pulse rate 76, respirations 18, blood pressure 124/58, and O2 saturation 96%. EXTREMITIES: Pedal pulses diminished in the right lower extremity. Skin temperature, warm to touch. Has a grade 3 ulceration on distal aspect of right foot, open, no bone exposed. ASSESSMENT: Grade 3 ulcer with peripheral arterial disease. PLAN: We will continue IV vancomycin. Continue local wound care with Iodosorb followed by light dry dressing. We will continue to follow. NOBLE Olmedo/VANGIE /[id number]
--- NOTE | 2018-08-07 19:42 | NUR ---
PATIENT IN STABLE CONDITION WITH NO S/S OF RESPIRATORY DISTRESS.. TELEMETRY APPLIED. EMERITA DRAIN INTACT AND DRAINAGE OUTPUT COLLECTED. DRESSING TO RIGHT FOOT AND RIGHT SIDE OF NECK COMPLETED. DIAPER APPLIED. BED ALARM ON. CALL LIGHT IS WITHIN REACH, INSTRUCTED TO CALL FOR ASSISTANCE NEEDED. REPORT GIVEN TO ONCOMING NURSE.
[2018-08-07] MEDS: ATORVASTATIN 40 MG TAB PO SCH (21:23)
[2018-08-07] MEDS: SERTRALINE HCL 100 MG TAB PO SCH (21:23)
[2018-08-08] VITALS (7 sets, daily range): BP systolic 107–135; BP diastolic 53–61
--- NOTE | 2018-08-08 03:06 | NUR ---
Patient laying in bed with HOB slightly elevated. AAO x 2. Bed at low position and locked. Call light within reach. Patient reports on no pain at this time. No acute distress noted. No sob noted. Patient in stable condition, will continue to monitor.
[2018-08-08] MEDS: MORPHINE SULFATE INJ 4 MG/ML INJ 1ML IV PRN ×5 (03:32→21:34)
--- NOTE | 2018-08-08 07:00 | NUR ---
PATIENT AWAKE, ALERT, AND IN STABLE CONDITION WITH NO S/S OF RESPIRATORY DISTRESS. PATIENT C/O PAIN. TELEMETRY APPLIED. EMERITA DRAIN INTACT. DRESSING TO RIGHT FOOT AND RIGHT SIDE OF NECK IS DRY AND INTACT. DIAPER APPLIED. BED ALARM ON. CALL LIGHT IS WITHIN REACH, INSTRUCTED TO CALL FOR ASSISTANCE NEEDED.
[2018-08-08] MEDS: INSULIN LISPRO 100 UNIT/1 ML 3ML VIAL SQ SCH ×4 (07:30→21:00)
[2018-08-08] MEDS: GABAPENTIN 300 MG CAP PO SCH ×3 (08:18→20:59)
[2018-08-08] MEDS: ASPIRIN 81 MG CHEW TAB PO SCH (08:18)
[2018-08-08] MEDS: CLOPIDOGREL BISULFATE 75 MG TAB PO SCH (08:18)
[2018-08-08] MEDS: METOCLOPRAMIDE HCL 10 MG/2ML VIAL IV SCH ×4 (08:18→20:59)
[2018-08-08] MEDS: FLUCONAZOLE 100 MG TAB PO SCH (08:18)
[2018-08-08] MEDS: BALSAM PERU/CASTOR OIL 60 GM OINT...G. TP SCH (08:19)
--- NOTE | 2018-08-08 09:21 | NUR ---
NECK DRESSING COMPLETED- PATIENT TOLERATED DRESSING CHANGE WELL.
--- NOTE | 2018-08-08 09:54 | Progress Note ---
DATE: 08/07/2018 Cardiology Progress Note SUBJECTIVE: Denies any new complaints today. Nausea improved. No chest pain or shortness of breath. Discussed abnormal arterial Doppler findings. OBJECTIVE: VITAL SIGNS: Temperature 97.5, heart rate 75, blood pressure 118/72, respiratory rate 16, O2 saturation 97%, BMI 37. GENERAL: No acute distress. Alert. NECK: No JVD. CHEST: Clear to auscultation. CARDIOVASCULAR: Regular rate and rhythm. Normal S1 and S2. Systolic crescendo ejection murmur. ABDOMEN: Soft. EXTREMITIES: Trace edema. Right TMA wound dehiscence and secretions also. MEDICATIONS: Cardiovascular medications reviewed. 1. Vancomycin. 2. Levofloxacin. 3. Meropenem. 4. Atorvastatin 80 mg p.o. at bedtime. 5. Aspirin 81 mg daily. 6. Fluconazole 200 mg daily. 7. Clopidogrel 75 mg daily. LABORATORY DATA: Studies reviewed. Sodium 136, potassium 4.1, chloride 96, bicarbonate 24, BUN 41, creatinine 6.05, glucose 85. White blood cells 8.8, hemoglobin 7.8, platelets 343. PT 13.5, PTT 42.8, INR 0.98, AST 8, ALT 8, total bilirubin 0.2, alkaline phosphatase 89, lipase 11. ASSESSMENT: 1. Peripheral vascular disease, status post recent right superficial femoral artery atherectomy, and peroneal single-vessel atherectomy and percutaneous transluminal angioplasty at [facility] in July of this year. 2. Right transmetatarsal amputation, status post wound dehiscence. 3. Status post laparoscopic cholecystectomy, presenting to the hospital with nausea. 4. Anemia. 5. End-stage renal disease, on scheduled dialysis. 6. Hypertension. 7. Prior history of cerebrovascular accident. RECOMMENDATIONS: 1. Arterial Doppler evaluated, concerning for severe aortoiliac right PUBLIC WELFARE DIRECTOR/outflow disease. In addition, monophasic waveforms noted to bilateral femoral arteries and popliteal arteries, and occluded right anterior tibial and posterior tibial arteries by Doppler. 2. Aortic stenosis, [id number]-[id number], as discussed previously. Please refer to echo report for further details. 3. Recommend further evaluation by Surgery regarding TMA stump wound. 4. Antibiotics at the discretion of ID. 5. regarding any healing, consider further angiographic assessment. Overall, guarded prognosis given the patient has a known occluded anterior tibial and posterior tibial artery per report from outside facility. Furthermore, arterial Doppler suggests more significant residual disease in the outflow of her lower extremity. Depending on overall the patient's dispo, we would suggest follow up with her Endovascular specialist, who did recent angiography soon versus if remains in-house, consider further angiographic evaluation this upcoming week. Of note, per report from [facility], her iliac, common femorals were reportedly patent. This is somewhat inconsistent with arterial Doppler findings. Matteo Devries MD AFNisa/MODL /[id number] MTDD
[2018-08-08] MEDS: MEROPENEM 500MG/ NS 50ML 50 ML IV SCH (12:33)
[2018-08-08] MEDS: CADEXOMER IODINE 30 GM TUBE TOP SCH (13:30)
[2018-08-08] MEDS: LORAZEPAM 0.5 MG TAB PO PRN (19:22)
[2018-08-08] MEDS: ACETAMINOPHEN 325 MG TAB PO PRN (19:22)
--- NOTE | 2018-08-08 19:33 | NUR ---
PATIENT IS IN STABLE CONDITION WITH NO S/S OF RESPIRATORY DISTRESS. PATIENT GIVEN TYLENOL AND ATIVAN UPON REQUEST. EMERITA DRAIN INTACT AND DRESSING APPLIED. DRESSING TO RIGHT FOOT AND RIGHT SIDE OF NECK ARE DRY AND INTACT. BILATERAL HEELS ELEVATED ON PILLOWS. BED ALARM APPLIED. CALL LIGHT IS WITHIN REACH, INSTRUCTED TO CALL FOR ASSISTANCE NEEDED. REPORT GIVEN TO ONCOMING NURSE.
[2018-08-08] MEDS: ATORVASTATIN 40 MG TAB PO SCH (20:59)
[2018-08-08] MEDS: SERTRALINE HCL 100 MG TAB PO SCH (20:59)
--- NOTE | 2018-08-08 21:35 | Progress Note ---
DATE: 08/08/2018 SUBJECTIVE: The patient at bedside, doing better, decreased pain to the right lower extremity. OBJECTIVE: VITAL SIGNS: Afebrile, pulse rate 71, respirations 18, blood pressure 124/60, and O2 saturation 92%. EXTREMITIES: Ulceration to the forefoot aspect of the right lower extremity healing slowly. Pedal pulses diminished. Skin temperature is warm to touch. There is negative foul smell noted. ASSESSMENT: Grade 3 ulcer with peripheral arterial disease and diabetic neuropathy. PLAN: We will continue Iodosorb gel to the affected area. Continue IV antibiotics. Continue local wound care. Continue offloading. Continue meropenem IV piggyback. NOBLE Olmedo/VANGIE /[id number]
[2018-08-09] VITALS: BP 112/51
--- NOTE | 2018-08-09 02:36 | Progress Note ---
DATE: 08/08/2018 Cardiology Progress Note SUBJECTIVE: No new complaints today. Discussed at length aortic stenosis, peripheral arterial disease, wound dehiscence, and my concerns and recommendations regarding her current state of health as well as plan of care advised. OBJECTIVE: VITAL SIGNS: Temperature 97.5, heart rate 71, blood pressure 135/61, respiratory rate is 18 and her O2 sat is 95%. BMI is 37. GENERAL: In no acute distress. Alert. NECK: No JVD. CHEST: Clear to auscultation. CARDIOVASCULAR: Regular rate and rhythm. Normal S1 and S2. Crescendo systolic ejection murmur /. ABDOMEN: Soft. EXTREMITIES: Right TMA with wound dehiscence and ulceration with secretion. Left toe stumps. MEDICATIONS: Cardiovascular medications reviewed: 1. Aspirin 81 mg daily. 2. Clopidogrel 75 mg daily. 3. Atorvastatin 40 mg at bedtime. LABORATORY DATA: Studies reviewed with potassium 4.1, creatinine is 6, hemoglobin 7.8, white count is 9.8, and her platelets 343, INR 0.9. ASSESSMENT: 1. Peripheral vascular disease, status post recent revascularization at [facility] with right SFA, atherectomy, and GROUP COUNSELOR and right single-vessel peroneal atherectomy and GROUP COUNSELOR with known occluded right anterior tibial and posterior tibial artery per report with abnormal Doppler suggestive of additional aortoiliac and common femoral/outflow disease that was reportedly patent on July 2018, outside institution angiography. 2. TMA wound dehiscence. 3. Diabetes mellitus. 4. Cerebrovascular accident. 5. Hypertension. 6. End-stage renal disease. 7. Anemia. RECOMMENDATIONS: Status post recent lap tejas, presenting with nausea and vomiting, now resolved. Per discussions with nursing staff and the patient, possible discharge being coordinated. My recommendations are as follows: 1. Follow up with General Surgery as well as Vascular specialist as outpatient for further plan of care regarding her TMA wound dehiscence. I suspect she will need further amputation likely BKA, might be worth considering repeat angiography prior to that. 2. Serial echocardiographic evaluation for her aortic valve stenosis advised every 3 months or sooner should it be clinically indicated. 3. Guarded overall prognosis as well as limb prognosis. 4. Continue current cardiovascular medications. Matteo Devries MD AFV/JAEL /[id number]
[2018-08-09 04:15] VITALS: BP 124/58
[2018-08-09] MEDS: INSULIN LISPRO 100 UNIT/1 ML 3ML VIAL SQ SCH ×2 (07:30→11:30)
[2018-08-09] MEDS: METOCLOPRAMIDE HCL 10 MG/2ML VIAL IV SCH ×2 (07:56→12:15)
[2018-08-09] MEDS: ASPIRIN 81 MG CHEW TAB PO SCH (07:57)
[2018-08-09] MEDS: GABAPENTIN 300 MG CAP PO SCH ×2 (07:57→15:17)
[2018-08-09] MEDS: CLOPIDOGREL BISULFATE 75 MG TAB PO SCH (07:57)
[2018-08-09] MEDS: CADEXOMER IODINE 30 GM TUBE TOP SCH (07:57)
[2018-08-09] MEDS: FLUCONAZOLE 100 MG TAB PO SCH (07:57)
[2018-08-09] MEDS: BALSAM PERU/CASTOR OIL 60 GM OINT...G. TP SCH (07:57)
[2018-08-09 08:00] VITALS: BP 122/60
[2018-08-09] MEDS: MORPHINE SULFATE INJ 4 MG/ML INJ 1ML IV PRN ×3 (08:01→16:20)
[2018-08-09] MEDS: MEROPENEM 500MG/ NS 50ML 50 ML IV SCH (12:15)
[2018-08-09] MEDS: EPOETIN ALFA 10000 UNIT/ML VIAL SC SCH (12:17)
[2018-08-09 13:41] VITALS: BP 103/60
--- NOTE | 2018-08-09 14:19 | Progress Note ---
DATE: 08/09/2018 SUBJECTIVE: Ms. Casey is a 57-year-old female with history of diabetes; end-stage renal disease, on hemodialysis; coronary artery disease, status post stent; peripheral vascular disease, status post stent; left CVA with right hemiparesis, who came to the emergency room complaining of abdominal pain and vomiting. She was found to have a gallbladder stone. She underwent cholecystectomy. She was also found to have a left foot infection with osteomyelitis and she was started on IV antibiotics and wound care. We are awaiting for SNF approval. PHYSICAL EXAMINATION: GENERAL: Today, she is awake and alert. VITAL SIGNS: Temperature is 96.1, blood pressure 124/58. HEART: Regular rate. LUNGS: Clear to auscultation. ABDOMEN: Distended and soft. Little tender in the surgical area. EXTREMITIES: Lower extremity, dressing on her foot. LABORATORY DATA: On the blood work, white count 8.8, hemoglobin 7.8, hematocrit 26.1. Sugar 95. Negative hepatitis profile. The urine culture is showing Joann glabrata and the wound culture is showing Stenotrophomonas maltophilia. Foot MRI shows probably osteomyelitis. ASSESSMENT AND PLAN: 1. Nausea and vomiting. Cholelithiasis, status post cholecystectomy. 2. Right transmetatarsal amputation dehiscence with osteomyelitis. 3. Diabetes type 2 with end-stage renal disease. 4. End-stage renal disease, on hemodialysis. 5. Anemia secondary to chronic kidney disease. 6. Peripheral artery disease, status post stent. 7. Diabetes type 2 with diabetic neuropathy. 8. Coronary artery disease, status post stent. 9. Peripheral neuropathy. 10. Left cerebrovascular accident with right hemiparesis. PLAN: The plan at present time is to continue ADA diet and sliding scale with insulin. Dialysis three times a day. Continue Epogen for anemia. Continue wound care and IV antibiotics. Continue dual antiplatelet therapy. We are awaiting for SNF approval. Antibiotics are as per ID. All this was discussed with the patient. All questions were answered to satisfaction. MD RAKESH Montano/VANGIE /[id number]
--- NOTE | 2018-08-09 14:43 | Progress Note ---
DATE: 08/09/2018 Cardiology Progress Note SUBJECTIVE: Denies any chest pain or shortness of breath. Has no new complaints. OBJECTIVE: VITAL SIGNS: Temperature 96.7, heart rate 73, respiratory rate 18, O2 saturation 94% on room air, blood pressure 124/58. GENERAL: In no acute distress, alert. NECK: No JVD. CHEST: Clear to auscultation. CARDIOVASCULAR: Regular rate and rhythm. Normal S1 and S2. Crescendo systolic ejection murmur. No S3 or S4. ABDOMEN: Soft. EXTREMITIES: Trace edema. Right TMA, wound dehiscences and ulceration. MEDICATIONS: Cardiovascular medication reviewed. Clopidogrel 75 mg daily, aspirin 81 mg daily, atorvastatin 80 mg at bedtime, meropenem, vancomycin, antibiotics as well as fluconazole, levofloxacin. LABORATORY DATA: White blood cells 8.8, hemoglobin 7.8, platelets 343 that is from 08/04/2018. No recent labs other than glucose of 95 today. ASSESSMENT: 1. Peripheral arterial disease, status post recent revascularization opacity and vascular direct with right SFA and atherectomy, peripheral arterial disease of right single-vessel peroneal as well as atherectomy with known occluded right AT and right PT. Abnormal Dopplers suggesting additional aortoiliac and common femoral outflow disease reportedly patent on July 2018, angiogram at outside institution. 2. Transmetatarsal amputation, wound dehiscence/infection. 3. Diabetes mellitus type 2. 4. Chronic kidney disease. 5. Hypertension. 6. End-stage renal disease. 7. Anemia. RECOMMENDATIONS: 1. The patient is status post recent laparoscopic cholecystectomy. Nausea and vomiting have resolved per nursing staff. Start patient disposition planning ongoing possible discharge today. 2. General Surgery and Vascular evaluation as outpatient for further management of her TMA wound dehiscence, likely and will need BKA, might be worth considering repeat arteriogram prior to this. 3. Serial echocardiographic evaluation for aortic valve stenosis advised every 3 months or sooner should be clinically indicated. 4. Overall has guarded limb and overall prognosis. 5. Continue cardiovascular medications. 6. Please feel free to call with any questions. MD KHADIJAH Boo/MODPatience /[id number]
[2018-08-09] MEDS ORDERED: DOXYCYCLINE HY100 MG PO (14:56)
[2018-08-09] MEDS ORDERED: CIPRO500 MG PO (14:57)
[2018-08-09] MEDS: LORAZEPAM 0.5 MG TAB PO PRN (15:17)
[2018-08-09 16:00] VITALS: BP 116/55
[2018-08-09] MEDS: VANCOMYCIN HCL 750 MG in SODIUM CHLORIDE 0.9% 100 ML 150 ML IV SCH (16:00)
--- NOTE | 2018-08-09 17:14 | Progress Note ---
DATE: 08/09/2018 SUBJECTIVE: The patient is seen at bedside, doing somewhat better. Denies any history of fever, chills, nausea, or vomiting. OBJECTIVE: VITAL SIGNS: Afebrile, pulse rate 70, respirations 16, blood pressure 124/58, O2 saturation 95%. LABORATORY DATA: Labs show a blood glucose of 95, ulceration to the right lower extremity healing slowly. No bone exposed, but is down to muscle, measuring approximately 2 x 3.5 to 4 cm in diameter. Pedal pulses are diminished. ASSESSMENT: Grade 3 ulcer, healing slowly with decreased circulatory status, right foot. PLAN: Continue local wound care. Continue IV antibiotics. Continue offloading. We will continue to follow. NOBLE Olmedo/JAEL /[id number]
== END 2018-08-09 18:44 | DRG 564 ==
LOC: ER 07:46 → ERHOLD 12:34 → MED/SURG3 19:30
PROVIDERS: ADMIT Internal Medicine; ATTEND Internal Medicine
PROC: 5A1D70Z Performance of Urinary Filtration, Intermittent, Less than 6 Hours Per Day (ICD-10-PCS; principal; 2018-08-06)
PROC: 5A1D70Z Performance of Urinary Filtration, Intermittent, Less than 6 Hours Per Day (ICD-10-PCS; 2018-08-07)
PROC: 5A1D70Z Performance of Urinary Filtration, Intermittent, Less than 6 Hours Per Day (ICD-10-PCS; 2018-08-08)
DX: T87.43 Infection of amputation stump, right lower extremity (principal); N18.6 End stage renal disease; R53.2 Functional quadriplegia; I69.351 Hemiplegia and hemiparesis following cerebral infarction affecting right dominant side; T81.30XA Disruption of wound, unspecified, initial encounter; M86.8X7 Other osteomyelitis, ankle and foot; I12.0 Hypertensive chronic kidney disease with stage 5 chronic kidney disease or end stage renal disease; E11.69 Type 2 diabetes mellitus with other specified complication; I25.10 Atherosclerotic heart disease of native coronary artery without angina pectoris; Z95.5 Presence of coronary angioplasty implant and graft; I25.2 Old myocardial infarction; E11.51 Type 2 diabetes mellitus with diabetic peripheral angiopathy without gangrene; Z79.4 Long term (current) use of insulin; E11.22 Type 2 diabetes mellitus with diabetic chronic kidney disease; E11.65 Type 2 diabetes mellitus with hyperglycemia; Z99.2 Dependence on renal dialysis; E11.43 Type 2 diabetes mellitus with diabetic autonomic (poly)neuropathy; K31.84 Gastroparesis; Z79.899 Other long term (current) drug therapy; E11.621 Type 2 diabetes mellitus with foot ulcer; L97.519 Non-pressure chronic ulcer of other part of right foot with unspecified severity; Z74.01 Bed confinement status; D63.1 Anemia in chronic kidney disease; L97.514 Non-pressure chronic ulcer of other part of right foot with necrosis of bone; Z95.820 Peripheral vascular angioplasty status with implants and grafts
CPT/HCPCS: 36415; 51700; 71045; 74177; 80048; 80053; 80061; 81001; 82150; 82550; 82553; 82948; 83605; 83690; 83735; 84484; 85025; 85610; 85730; 86704; 86706; 86707; 87040; 87071; 87086; 87186; 87205; 87340; 87350; 93005; 93306; 93925; 99285; J1644; J2185; J2270; J2405; J2550; J2765; J3370; J7030; J7040; J7050; Q4081; Q9967